=== PATIENT | female | born 1950 | race Caucasian/White ===

== ENCOUNTER 2018-10-19 08:45 | Day surgery (SDC) | payer BC ==
[~2018-10-19 08:45] MED LIST: Lactated Ringers 1,000 ML IV SCH; Lidocaine 1%/Sod Bicarbonate in NS 8.4% 1 ML Syringe IDERM PRN; Sodium Chloride 0.9% 10 ML Syringe FLUSH PRN
--- NOTE | 2018-10-19 09:18 | PCM.PREANE ---
Preanesthetic Assessment - Anesthesia/Transfusion/Family Hx Anesthesia History: Prior Anesthesia Without Reaction Family History of Anesthesia Reaction: No Transfusion History: No Prior Transfusion(s) Intubation History: Unknown - Review of Systems General: No Symptoms Pulmonary: No Symptoms Cardiovascular: No Symptoms (History of HTN, ICD 2016, , cardiac stents 2014, 2017: plavix last dose 10/13/18/history of [place] 2017/CHF), Edema (on lasix for symptoms of CHF/none present today) Gastrointestinal: No Symptoms Neurological: Headache Other: Reports: Easy Bleeding, Easy Bruising, Diabetes (AM blood sugar:61@ 0922) , Depression, Anxiety - Physical Assessment NPO Status Date: 10/18/18 NPO Status Time: 22:00 Pulse: 54 O2 Sat by Pulse Oximetry: 97 Respiratory Rate: 16 Blood Pressure: 117/60 Temperature: 36.9 C Height: 1.52 m Weight: 70.307 kg ASA Class: 3 Mental Status: Alert & Oriented x3 Airway Class: Mallampati = 2 Dentition: Reports: Normal Dentition, Caries Thyro-Mental Finger Breadths: 3 Mouth Opening Finger Breadths: 3 ROM/Head Extension: Full Lungs: Clear to Auscultation, Normal Respiratory Effort Cardiovascular: Regular Rate, Regular Rhythm, No Murmurs - Lab Values: All labs reviewed and noted and within acceptable ranges to proceed with scheduled procedure. - Imaging/EKG Impressions: EKG: SR rate= 55, prolonged CHLOÉ, right BBB Echocardiogram 2017: EF: 45-50%, Grade II, dilated filling dysfunction, RV elevated systolic pressure,mild to moderate aortic valve regurgitation - Allergies Allergies/Adverse Reactions: Allergies Allergy/AdvReac Type Severity Reaction Status Date / Time azithromycin Allergy Hives Verified 10/18/18 14:14 duloxetine Allergy Diarrhea Verified 10/18/18 14:14 lisinopril Allergy Cough Verified 10/18/18 14:14 losartan Allergy Cannot Verified 10/18/18 14:14 Remember naproxen sodium [From Aleve] Allergy Hives Verified 10/18/18 14:14 polymyxin B Allergy Swollen Verified 10/18/18 14:14 Eyes enalapril AdvReac Nausea Verified 10/18/18 14:14 ezetimibe [From Zetia] AdvReac Nausea Verified 10/18/18 14:14 irbesartan [From Avapro] AdvReac Nausea Verified 10/18/18 14:14 pravastatin sodium AdvReac Nausea Verified 10/18/18 14:14 [From Pravachol] - Anesthesia Plan Beta Rosa Maria: Metoprolol Med Last Dose Date: 10/19/18 Med Last Dose Time: 07:30 - Acknowledgements Anesthesia Type Planned: MAC Pt an Appropriate Candidate for the Planned Anesthesia: Yes Alternatives and Risks of Anesthesia Discussed w Pt/Guardian: Yes Pt/Guardian Understands and Agrees with Anesthesia Plan: Yes PreAnesthesia Questionnaire HEENT History: Reports: Cataract, Impaired Vision Other HEENT History: Wears glasses Cardiovascular History: Reports: High Cholesterol, Hypertension, Stents Other Cardiovascular History: Open heart when infact Respiratory History: Reports: Bronchitis, Recurrent 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: 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 History: Reports: Fracture Psychiatric History: Reports: Anxiety Endocrine/Metabolic History: Reports: Diabetes, Type II - Past Surgical History HEENT Surgical History: Reports: Adenoidectomy, Cataract Surgery, Tonsillectomy GI Surgical History: Reports: Appendectomy, Cholecystectomy Female Surgical History: Reports: Section - HOME MEDS Home Medications: Home Meds Aspirin [[place] Aspirin] 81 mg PO DAILY 10/09/14 [History] Clopidogrel [Plavix] 75 mg PO DAILY 10/09/14 [History] Furosemide [Lasix] 20 mg PO DAILY 10/09/14 [History] Insulin Aspart [NovoLOG] 1 dose SQ TID PRN 10/09/14 [History] Insulin Glargine,Hum.Rec.Anlog [Lantus Solostar] 28 unit SQ BID 10/09/14 [ History] Mometasone Furoate [Elocon] 0.1 gm TOP DAILY PRN 10/09/14 [History] Sertraline [Zoloft] 100 mg PO DAILY 10/09/14 [History] Valsartan 40 mg PO DAILY 10/09/14 [History] metFORMIN [Glucophage] 1,000 mg PO BID 10/09/14 [History] Clobetasol Propionate [Temovate Cream] 1 dose TOP BID 10/18/18 [History] Multivitamin [Daily August] 1 tab PO DAILY 10/18/18 [History] Rosuvastatin Calcium 10 mg PO DAILY 10/18/18 [History] amLODIPine Besylate [Amlodipine Besylate] 5 mg PO DAILY 10/18/18 [History] - CURRENT (IN HOUSE) MEDS Current Meds: Current Medications Lactated Ringer's (Ringers, Lactated) 1,000 mls @ 125 mls/hr IV ASDIRECTED TUAN Stop: 10/19/18 23:00 Lidocaine/Sodium Bicarbonate (Buffered Lidocaine 1% In Ns 8.4%) 0.25 ml IDERM ONETIME PRN PRN Reason: Prior to IV Start Stop: 10/19/18 18:00 Sodium Chloride (Saline Flush) 10 ml FLUSH ASDIRECTED PRN PRN Reason: Keep Vein Open Stop: 10/19/18 18:00
[2018-10-19] MEDS ORDERED: Propofol 200 MG/20 ML SDV ONE ×2 (09:23→10:55)
[2018-10-19] MEDS ORDERED: Lidocaine 1% 2 ML ONE ×2 (09:24)
--- NOTE | 2018-10-19 11:24 | PCM48HPAN ---
Post Anesthesia Note - EVALUATION WITHIN 48HRS OF ANESTHETIC Vital Signs in Normal Range: Yes Patient Participated in Evaluation: Yes Respiratory Function Stable: Yes Airway Patent: Yes Cardiovascular Function Stable: Yes Hydration Status Stable: Yes Pain Control Satisfactory: Yes Nausea and Vomiting Control Satisfactory: Yes Mental Status Recovered: Yes Pulse Rate: 57 SaO2: 100 Resp Rate: 14 Temperature: 36.9 C Blood Pressure: 103/46
--- NOTE | 2018-10-19 11:46 | PCM.OPNOTE ---
- General Post-Op/Procedure Note Date of Surgery/Procedure: 10/19/18 Operative Procedure(s): Colonoscopy Findings: Polyp in the transverse colon Pre Op Diagnosis: Screening colonoscopy for colorectal cancer Post-Op Diagnosis: Same Anesthesia Technique: MAC Primary Surgeon: Ina Lawrence Anesthesia Provider: Anel Navarro Pathology: Transverse colon polyp Fluid Replacement, Intraop: 800 Output, Urine Amount: 0 EBL in mLs: 0 Complications: None apparent Condition: Good
--- NOTE | 2018-10-19 11:49 | PCM.PRNOTE ---
- Free Text/Narrative Note: Operative Report Date of Surgery/Procedure: October 19, 2018 Operative Procedure: Colonoscopy to cecum with polypectomy Pre Op Diagnosis: colorectal cancer screening Post-Op Diagnosis: . Same Surgeon: Ina Lawrence MD Anesthesia Technique: MAC Anesthesia Provider: Anel Navarro CRNA IV Fluid Replacement, Intraop: 800cc Output, Urine Amount: 0cc EBL : 0cc Findings: Sessile polyp in the transverse colon Specimens: Transverse colon polyp Indication: The patient is a 67 year-old lady who presented to the outpatient clinic requesting colorectal cancer screening. The patient has findings of a ventral hernia, but has never undergone colorectal cancer screening. We advised completion of colonoscopy prior to ventral hernia repair. The patient was agreeable. We discussed the procedure of a screening colonoscopy including the polypectomy and biopsy. Risks of bleeding and perforation were discussed, the patient understood and wished to proceed. Written and consent was obtained Description of the procedure: The patient was brought to the endoscopy suite and placed in the left lateral decubitus position. Appropriate monitors were applied. The patient was given MAC anesthesia. An anorectal examination was performed, revealing no significant abnormalities. The scope was placed into the rectum and advanced to cecum with some difficulty requiring annual abdominal pressure. The patient s cecum was entered, and the ileocecal valve and appendiceal orifice were identified and normal. At this point, the scope was withdrawn, paying careful attention to the mucosa. The patient had good bowel prep, allowing for visualization of 85-90% of the mucosa. A 4 mm sessile polyp was noted in the transverse colon, and was removed using jumbo cold biopsy forceps. In the rectum , the scope was retroflexed and no abnormalities were noted, except for some hemorrhoidal tissue. The scope was placed back in the lumen and the excess air was aspirated. The patient tolerated the procedure well. Complications: none apparent Condition: Good, transported to PACU in stable condition Ina Lawrence MD General Surgery
[2018-10-19 12:29] VITALS: BP 136/53
== END 2018-10-19 12:20 | disposition home or self-care (01) ==
LOC: JD.SDS 08:45
PROVIDERS: ATTEND Surgery
DX: Z12.11 Encounter for screening for malignant neoplasm of colon (principal); D12.3 Benign neoplasm of transverse colon; K43.9 Ventral hernia without obstruction or gangrene; K64.9 Unspecified hemorrhoids; I25.10 Atherosclerotic heart disease of native coronary artery without angina pectoris; I11.0 Hypertensive heart disease with heart failure; I50.9 Heart failure, unspecified; I25.2 Old myocardial infarction; E11.9 Type 2 diabetes mellitus without complications; E78.00 Pure hypercholesterolemia, unspecified; F32.9 Major depressive disorder, single episode, unspecified; Z88.1 Allergy status to other antibiotic agents; Z88.6 Allergy status to analgesic agent; Z88.8 Allergy status to other drugs, medicaments and biological substances; Z95.5 Presence of coronary angioplasty implant and graft; Z95.810 Presence of automatic (implantable) cardiac defibrillator; Z79.02 Long term (current) use of antithrombotics/antiplatelets; Z79.82 Long term (current) use of aspirin; Z79.4 Long term (current) use of insulin; Z79.899 Other long term (current) drug therapy
CPT/HCPCS: 45380; 82962; 93005; J2001; J2704; J7120; 00812

== ENCOUNTER 2018-11-23 06:07 | Day surgery (SDC) | payer BC ==
[2018-11-23] MEDS ORDERED: Lidocaine 1% with EPINEPHrine 1:100,000 20 ML MDV ONE (07:08)
[2018-11-23] MEDS ORDERED: Bupivacaine 0.5%/EPINEPHrine 1:200,000 50 ML MDV ONE (07:08)
[2018-11-23] MEDS ORDERED: Propofol 200 MG/20 ML SDV ONE (07:21)
[2018-11-23] MEDS ORDERED: fentaNYL 100 MCG/2 ML SDV ONE ×2 (07:22→08:36)
[2018-11-23] MEDS ORDERED: Midazolam 1 MG/ML 2 ML SDV ONE (07:23)
[2018-11-23] MEDS ORDERED: Rocuronium 50 MG/5 ML Vial ONE (07:23)
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
[2018-11-23] MEDS ORDERED: ceFAZolin 1 GM Vial ONE ×2 (07:43)
--- NOTE | 2018-11-23 08:22 | CR ---
Chest: Portable view of the chest was obtained. Comparison: Prior chest x-ray of 10/13/16. Heart is mildly enlarged. Tortuous thoracic aorta is seen. AICD is noted. Lungs are clear with no acute parenchymal change. Bony structures are grossly intact. Scattered old healed rib fractures are noted. Impression: 1. Cardiomegaly with AICD. 2. Other incidental findings. Nothing acute is appreciated. Diagnostic code #2
[2018-11-23] MEDS ORDERED: Dexamethasone 4 MG/ML 5 ML MDV ONE (08:37)
[2018-11-23] MEDS ORDERED: Labetalol 100 MG/20 ML MDV ONE (08:39)
[2018-11-23] MEDS ORDERED: Ondansetron 4 MG/2 ML SDV ONE (09:41)
[2018-11-23] MEDS ORDERED: Phenylephrine 1% 10 MG/ML SDV ONE (09:42)
--- NOTE | 2018-11-23 10:26 | PCM.OPNOTE ---
- General Post-Op/Procedure Note Date of Surgery/Procedure: 11/23/18 Operative Procedure(s): Laparoscopic ventral hernia repair with mesh Findings: Epigastric hernia measuring 4 x 5 cm containing epigastrium; multiple filmy adhesions to omentum throughout abdomen Pre Op Diagnosis: Ventral hernia, possible incisional hernia Post-Op Diagnosis: Epigastric hernia Anesthesia Technique: General ET Tube Primary Surgeon: Ina Lawrence Anesthesia Provider: Luis Angel Hart Pathology: None Fluid Replacement, Intraop: 1,300 Output, Urine Amount: 0 EBL in mLs: 10 Complications: None apparent Condition: Good
[2018-11-23] MEDS ORDERED: Ketorolac 30 MG/ML SDV IVPUSH PRN (10:30)
[2018-11-23] MEDS ORDERED: Albuterol/Ipratropium 3.0-0.5 MG/3 ML Neb Soln NEB SCH (10:30)
--- NOTE | 2018-11-23 10:31 | PCM.PRNOTE ---
- Free Text/Narrative Note: Operative Report Date of surgery: November 23, 2018 Preoperative diagnosis: Ventral hernia, possible incisional hernia Postoperative diagnosis: Epigastric hernia Surgeon: Dr. Ina Lawrence Anesthesia: General ET Radial Drill Press Operator: Luis Angel Hart CRNA Estimated blood loss: 10 mL IV fluids: 1300 mL Urine output: See anesthesia record Drains and lines: None Indication for the procedure: The patient is a 67-year-old lady who presented to my office with complaint of a ventral hernia. The patient reports having and open cholecystectomy in the past. She recently had weight loss and noted a bulge in her abdomen. I discussed a procedure of a laparoscopic ventral hernia repair with mesh with the patient. Risks of infection, bleeding and mesh complication was reviewed, and written consent was obtained Description of the procedure: The patient presented to the outpatient holding area on the day for procedure history and physical were verified and the consent was present and on the chart. . She was taken back to the operating room and placed in supine position on the operating table. SCD boots were placed and functional prior to the service procedure. The patient received preoperative antibiotics as per SCIP protocol. The patient had successful induction of general anesthesia and was intubated without difficulty. The patient's left arm was tucked and the pressure points were padded. The patient was prepped and draped in standard surgical fashion and a timeout was performed. The abdomen was draped with Ioban to begin. A 5 mm incision was then made in the left upper quadrant just under the subcostal margin. A 5 mm port was then inserted into the abdomen with the Visiport technique. The abdomen was insufflated to 15 mmHg. There was no evidence of any injury in the area where we had entered the abdomen. A TAP block was then performed using 0.5 % bupivacaine with epinephrine mixed with 1% lidocaine with epinephrine. We then proceeded to survey the area of hernia. A 5 mm port was inserted in the left lower quadrant. The LigaSure device was then used to take down the adhesions and to reduce the hernia sac. We completed the TAP block once the right side of the abdomen was no longer obscured. We then used a spinal needle to size the hernia. It measured proximally 4 x 5 cm in the epigastrium. In order to cover the defect, a 15 x 20 cm oval double- sided mesh was selected. Goodwin-Kael suture were affixed in all 4 quadrants of the mesh. The right sided 12 mm abdominal port was placed in the right lower quadrant. The mesh was then soaked in saline, rolled and placed through this port into the abdomen. The mesh was then unfurled within the abdomen and the fixation site was marked with the spinal needle. A small stab incision was made in the area where we had selected. An Endo Close suture passer was then passed into the abdomen and the tails of the Goodwin-Kael suture were brought to the abdominal wall and secured. We then proceeded to do the same with the four remaining sutures in all four quadrants of the mesh. A SecureStrap Ethicon tacker was then used to circumferentially tack the to the abdominal wall. The 12 mm port was then removed and the fascial defect closed with an 0 Vicryl. The abdomen was then desufflated and the ports were removed. The stay sutures were tied down to the abdominal wall and the subcutaneous tissue was released as necessary for good closure. The incision sites were then closed with 4-0 Monocryl suture. Dermabond surgical glue were used to cover the port sites and stab incisions. The patient tolerated the procedure well and was transported to the PACU in stable condition. All sponge and needle counts correct. The Nivees catheter was removed at the conclusion of the case Complications: None apparent. Disposition: Stable to PACU Ina Lawrence MD General Surgery
--- NOTE | 2018-11-23 10:34 | PCM.POSTAN ---
POST ANESTHESIA ASSESSMENT - MENTAL STATUS Mental Status: Alert - CARDIOVASCULAR CV Status: Pulse Rate WNL, Blood Pressure Stable - GASTROINTESTINAL GI Status: No Symptoms - POST OP HYDRATION Hydration Status: Adequate & Stable
--- NOTE | 2018-11-23 10:35 | PCM48HPAN ---
Post Anesthesia Note - EVALUATION WITHIN 48HRS OF ANESTHETIC Vital Signs in Normal Range: Yes Patient Participated in Evaluation: Yes Respiratory Function Stable: Yes Airway Patent: Yes Cardiovascular Function Stable: Yes Hydration Status Stable: Yes Pain Control Satisfactory: Yes Nausea and Vomiting Control Satisfactory: Yes Mental Status Recovered: Yes Resp Rate: 16
[2018-11-23] MEDS ORDERED: Acetaminophen/HYDROcodone 325-5 MG Tab PO PRN (11:12)
[2018-11-23 13:10] VITALS: BP 137/49
== END 2018-11-23 13:25 | disposition home or self-care (01) ==
LOC: JD.SDS 06:07
PROVIDERS: ATTEND Surgery
DX: K43.9 Ventral hernia without obstruction or gangrene (principal); S36.408A Unspecified injury of other part of small intestine, initial encounter; I11.0 Hypertensive heart disease with heart failure; I50.9 Heart failure, unspecified; I73.9 Peripheral vascular disease, unspecified; E11.9 Type 2 diabetes mellitus without complications; I25.10 Atherosclerotic heart disease of native coronary artery without angina pectoris; I25.2 Old myocardial infarction; E78.5 Hyperlipidemia, unspecified; E78.00 Pure hypercholesterolemia, unspecified; M50.30 Other cervical disc degeneration, unspecified cervical region; F32.9 Major depressive disorder, single episode, unspecified; F41.9 Anxiety disorder, unspecified; J40 Bronchitis, not specified as acute or chronic; E66.9 Obesity, unspecified; Z68.33 Body mass index [BMI] 33.0-33.9, adult; Z98.890 Other specified postprocedural states; Z88.6 Allergy status to analgesic agent; Z88.1 Allergy status to other antibiotic agents; Z91.048 Other nonmedicinal substance allergy status; Z79.82 Long term (current) use of aspirin; Z79.899 Other long term (current) drug therapy; Z79.02 Long term (current) use of antithrombotics/antiplatelets; Z79.4 Long term (current) use of insulin; Z95.810 Presence of automatic (implantable) cardiac defibrillator; Z95.5 Presence of coronary angioplasty implant and graft; Z95.0 Presence of cardiac pacemaker
CPT/HCPCS: 36415; 49652; 71045; 80053; 82962; 85025; 94640; A9270; J0690; J1100; J2250; J2370; J2405; J2704; J3010; J3490; J7120; J7620-GY

== ENCOUNTER 2021-02-12 20:58 | Emergency (ER) | payer MEDICARE, OTHER ==
[2021-02-12] MEDS ORDERED: HYDROmorphone 0.5 MG/0.5 ML Syringe IVPUSH ONE ×2 (21:16→23:04)
[2021-02-12] MEDS ORDERED: Ondansetron 4 MG/2 ML SDV IVPUSH ONE (21:18)
--- NOTE | 2021-02-12 21:25 | EDM.PDOC ---
ED HPI GENERAL MEDICAL PROBLEM - General Stated Complaint: [facility] Time Seen by Provider: 02/12/21 21:00 Source of Information: Reports: Patient, EMS History Limitations: Reports: No Limitations - History of Present Illness INITIAL COMMENTS - FREE TEXT/NARRATIVE: A trauma alert was called for this patient. Ms. Vidal is a very pleasant 70-year-old woman who is now brought to the ED by EMS after she states that she lost her balance and fell in her bathroom around 19:30 tonight, striking her right ribs on the edge of the tub. She states that she has considerable pain to the area with movement, but denies having trouble breathing. The patient is on Coumadin for paroxysmal atrial fibrillation. EMS found the patient's blood glucose to be 320. No medications were given by EMS. Here in the ED, the patient is found to be hemodynamically stable, afebrile, saturating 96% on room air. She appears to be uncomfortable whenever she moves. Prior to oscar's fall, the patient denies having a recent fever, chills, sore throat, ear pain, nasal or sinus congestion, cough, dyspnea, chest pain, palpitations, nausea, vomiting, constipation, diarrhea, abdominal pain, urinary symptoms, recent weight gain or weight loss, recent bloody bowel movements or black bowel movements, recent joint aches, headaches, or rashes. The patient's PCP is CHERRI Johnson. Her Ocean Biologist is Dr. Connor Garcia. Her Cook Specialty is Dr. Luís Saunders. She has received 2 COVID vaccinations. Right Mid-Anterior Trunk Pain Score (Numeric/FACES): 10 - Related Data Allergies Allergy/AdvReac Type Severity Reaction Status Date / Time azithromycin Allergy Hives Verified 02/12/21 22:01 duloxetine Allergy Diarrhea Verified 02/12/21 22:01 lisinopril Allergy Cough Verified 02/12/21 22:01 losartan Allergy Nausea Verified 02/12/21 22:01 naproxen sodium [From Aleve] Allergy Hives Verified 02/12/21 22:01 polymyxin B Allergy Swollen Verified 02/12/21 22:01 Eyes enalapril AdvReac Nausea Verified 02/12/21 22:01 ezetimibe [From Zetia] AdvReac Nausea Verified 02/12/21 22:01 irbesartan [From Avapro] AdvReac Nausea Verified 02/12/21 22:01 pravastatin sodium AdvReac Nausea Verified 02/12/21 22:01 [From Pravachol] Home Meds: Home Meds Aspirin [Broadway Aspirin] 81 mg PO DAILY 10/09/14 [History] Insulin Aspart [NovoLOG] 1 dose SQ TID 10/09/14 [History] Insulin Glargine,Hum.Rec.Anlog [Lantus Solostar] 30 unit SQ BID 10/09/14 [History] Mometasone Furoate [Elocon 0.1% Crm] 0.1 gm TOP DAILY PRN 10/09/14 [History] Sertraline [Zoloft] 100 mg PO BEDTIME 10/09/14 [History] metFORMIN [Glucophage] 1,000 mg PO BID 10/09/14 [History] Multivitamin [Daily August] 1 tab PO DAILY 10/18/18 [History] Rosuvastatin Calcium 20 mg PO DAILY 10/18/18 [History] amLODIPine Besylate [Amlodipine Besylate] 5 mg PO DAILY 10/18/18 [History] Acetaminophen [Tylenol Extra Strength] 500 mg PO Q4HR PRN 11/22/18 [History] Furosemide 80 mg PO MOWEFR 11/22/18 [History] Metoprolol Tartrate 25 mg PO BID 11/22/18 [History] Valsartan 80 mg PO DAILY 11/22/18 [History] Cholecalciferol (Vitamin D3) [Vitamin D3] 1,000 unit PO DAILY 02/13/21 [History] Clobetasol/Emollient [Temovate E 0.05% Crm] 1 appful TOP BID 02/13/21 [History] Furosemide [Lasix] 40 mg PO SUTUTHSA 02/13/21 [History] Warfarin [Coumadin] 2.5 mg PO TUSA 02/13/21 [History] Warfarin [Coumadin] 5 mg PO SUMOWETHFR 02/13/21 [History] Past Medical History HEENT History: Reports: Impaired Vision (wears glasses) Cardiovascular History: Reports: Afib (paroxysmal), CAD, Heart Failure, High Cholesterol, Hypertension, [place] (x 1) 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 History: Reports: Fracture (ribs) Psychiatric History: Reports: Anxiety, Depression Endocrine/Metabolic History: Reports: Diabetes, Type II, Obesity/BMI 30+ - Past Surgical History HEENT Surgical History: Reports: Adenoidectomy, Cataract Surgery (bilateral), Laser Surgery (bilateral), Tonsillectomy Cardiovascular Surgical History: Reports: AICD GI Surgical History: Reports: Appendectomy, Cholecystectomy (1975), Colonoscopy, Hernia, Abdominal Female Surgical History: Reports: Section (x 1), Tubal Ligation Social & Family History - Tobacco Use Tobacco Use Status *Q: Never Tobacco User - Caffeine Use Caffeine Use: Reports: Soda - Alcohol Use Alcohol Use History: Yes Date/Time of Last Drink Comment: Sober x 2005 - Recreational Drug Use Recreational Drug Use: No - Living Situation & Occupation Living situation: Reports: , with Family (Son) Occupation: Retired ED ROS GENERAL - Review of Systems Review Of Systems: Comprehensive ROS is negative, except as noted in HPI. ED EXAM, GENERAL - Physical Exam Exam: See Below Exam Limited By: No Limitations General Appearance: Alert, WD/WN, Mild Distress (appears uncomfortable when moves) Eye Exam: Bilateral Eye: EOMI, Normal Inspection (s/p cataract surgery) Ears: Normal External Exam, Hearing Grossly Normal Nose: Normal Inspection Throat/Mouth: Normal Inspection, Normal Lips, Normal Voice, No Airway Compromise Head: Atraumatic, Normocephalic Neck: Normal Inspection, Full Range of Motion Respiratory/Chest: No Respiratory Distress, Lungs Clear, Normal Breath Sounds, No Accessory Muscle Use, Other (No visible abnormality to the right ribs, such as swelling, erythema, ecchymosis, abrasion, however, the patient has exquisite tenderness to palpation. No crepitus palpated or rub heard.). No: Decreased Breath Sounds, Crackles, Rhonchi, Wheezing, Stridor, Pleural Rub, Prolonged Expiration Cardiovascular: Normal Peripheral Pulses, Regular Rate, Rhythm, No Edema, No Gallop, No JVD, No Murmur, No Rub Peripheral Pulses: 3+: Radial (L), Radial (R) GI/Abdominal: Normal Bowel Sounds, Soft, No Organomegaly, No Distention, No Abnormal Bruit, No Mass, Tender (Right upper quadrant only. Nontender elsewhere.) Back Exam: Normal Inspection, Full Range of Motion, NT Extremities: Normal Inspection, Normal Range of Motion, No Pedal Edema, Normal Capillary Refill Neurological: Alert, Oriented, Normal Cognition, No Motor/Sensory Deficits Psychiatric: Normal Affect Skin Exam: Warm, Dry, Intact, Normal Color, No Rash #1 Interpretation EKG Date: 02/12/21 Time: 22:50 Rhythm: NSR Rate (Beats/Min): 63 Poca: LAD-Left Poca Deviation (due to LAFB) P-Wave: Present (1st degree AVB) QRS: RBBB (LVH. Late transition.) ST-T: Depressed (Inferior leads, V4-V6) QT: Prolonged (QTc 485 ms) Comparison: Change From Previous EKG (ST depression ini inferior leads and V4-V6 new since 10/19/2018) Course - Vital Signs Last Recorded V/S: Last Vital Signs Temp 36.5 C 02/12/21 21:00 Pulse 65 02/13/21 06:43 Resp 18 02/13/21 06:43 BP 188/52 H 02/13/21 06:43 Pulse Ox 94 L 02/13/21 06:43 - Orders/Labs/Meds Orders: Active Orders 24 hr Category Date Time Status Chest Abdomen Pelvis w Cont [CT] Stat Exams 02/12/21 21:14 Taken Sodium Chloride 0.9% [Normal Saline] 1,000 ml Med 02/12/21 21:30 Active IV ASDIRECTED Medication Orders Sodium Chloride (Normal Saline) 1,000 mls @ 100 mls/hr IV ASDIRECTED TUAN Last Admin: 02/12/21 21:45 Dose: 100 mls/hr Documented by: THOMAS Labs: Laboratory Tests 02/12/21 02/12/21 02/12/21 Range/Units 21:30 21:30 21:30 WBC 12.64 H (3.98-10.04) K/mm3 RBC 4.24 (3.98-5.22) M/mm3 Hgb 11.5 (11.2-15.7) gm/dl Hct 35.8 (34.1-44.9) % MCV 84.4 (79.4-94.8) fl MCH 27.1 (25.6-32.2) pg MCHC 32.1 L (32.2-35.5) g/dl RDW Std Deviation 40.1 (36.4-46.3) fL Plt Count 213 (182-369) K/mm3 MPV 10.5 (9.4-12.3) fl Neutrophils % (Manual) 81 H (40-60) % Band Neutrophils % 0 (0-10) % Lymphocytes % (Manual) 11 L (20-40) % Atypical Lymphs % 0 % Monocytes % (Manual) 7 (2-10) % Eosinophils % (Manual) 1 (0.7-5.8) % Basophils % (Manual) 0 L (0.1-1.2) Platelet Estimate Adequate RBC Morph Comment Normal PT 28.2 H (9.7-12.0) SECONDS INR 2.69 APTT 40.8 H (21.7-31.4) SECONDS Sodium 133 L (136-145) mEq/L Potassium 4.8 (3.5-5.1) mEq/L Chloride 98 (98-107) mEq/L Carbon Dioxide 31 (21-32) mEq/L Anion Gap 8.8 (5-15) BUN 29 H (7-18) mg/dL Creatinine 1.6 H (0.55-1.02) mg/dL Est Cr Clr Drug Dosing 24.17 mL/min Estimated GFR (MDRD) 32 (>60) mL/min BUN/Creatinine Ratio 18.1 H (14-18) Glucose 333 H (70-99) mg/dL POC Glucose (70-99) mg/dL Calcium 8.9 (8.5-10.1) mg/dL Magnesium 1.9 (1.8-2.4) mg/dL Total Bilirubin 0.4 (0.2-1.0) mg/dL AST 29 (15-37) U/L ALT 37 (14-59) U/L Alkaline Phosphatase 130 H (46-116) U/L Troponin I 0.216 H* (0.00-0.056) ng/mL Total Protein 8.1 (6.4-8.2) g/dl Albumin 4.1 (3.4-5.0) g/dl Globulin 4.0 gm/dL Albumin/Globulin Ratio 1.0 (1-2) SARS-CoV-2 RNA (LEXIE) (NEGATIVE) 02/12/21 02/12/21 02/13/21 Range/Units 22:30 23:45 02:35 WBC (3.98-10.04) K/mm3 RBC (3.98-5.22) M/mm3 Hgb (11.2-15.7) gm/dl Hct (34.1-44.9) % MCV (79.4-94.8) fl MCH (25.6-32.2) pg MCHC (32.2-35.5) g/dl RDW Std Deviation (36.4-46.3) fL Plt Count (182-369) K/mm3 MPV (9.4-12.3) fl Neutrophils % (Manual) (40-60) % Band Neutrophils % (0-10) % Lymphocytes % (Manual) (20-40) % Atypical Lymphs % % Monocytes % (Manual) (2-10) % Eosinophils % (Manual) (0.7-5.8) % Basophils % (Manual) (0.1-1.2) Platelet Estimate RBC Morph Comment PT (9.7-12.0) SECONDS INR APTT (21.7-31.4) SECONDS Sodium (136-145) mEq/L Potassium (3.5-5.1) mEq/L Chloride (98-107) mEq/L Carbon Dioxide (21-32) mEq/L Anion Gap (5-15) BUN (7-18) mg/dL Creatinine (0.55-1.02) mg/dL Est Cr Clr Drug Dosing mL/min Estimated GFR (MDRD) (>60) mL/min BUN/Creatinine Ratio (14-18) Glucose (70-99) mg/dL POC Glucose 240 H (70-99) mg/dL Calcium (8.5-10.1) mg/dL Magnesium (1.8-2.4) mg/dL Total Bilirubin (0.2-1.0) mg/dL AST (15-37) U/L ALT (14-59) U/L Alkaline Phosphatase (46-116) U/L Troponin I 0.191 H* (0.00-0.056) ng/mL Total Protein (6.4-8.2) g/dl Albumin (3.4-5.0) g/dl Globulin gm/dL Albumin/Globulin Ratio (1-2) SARS-CoV-2 RNA (LEXIE) Negative (NEGATIVE) Meds: Medications Generic Name Dose Route Start Last Admin Trade Name Freq PRN Reason Stop Dose Admin Sodium Chloride 1,000 mls @ 100 mls/hr 02/12/21 21:30 02/12/21 21:45 Normal Saline IV 100 mls/hr ASDIRECTED TUAN Administration Discontinued Medications Generic Name Dose Route Start Last Admin Trade Name Moe PRAniyah Reason Stop Dose Admin Aspirin 324 mg 02/12/21 22:53 02/12/21 23:00 Aspirin 81 Mg Tab.Chew PO 02/12/21 22:54 324 mg ONETIME STA Administration Hydromorphone HCl 0.5 mg 02/12/21 21:16 02/12/21 21:46 Hydromorphone 0.5 Mg/0.5 Ml Syringe IVPUSH 02/12/21 21:17 0.5 mg ONETIME ONE Administration Hydromorphone HCl 0.5 mg 02/12/21 23:04 02/12/21 23:19 Hydromorphone 0.5 Mg/0.5 Ml Syringe IVPUSH 02/12/21 23:05 0.5 mg ONETIME ONE Administration Hydromorphone HCl 0.5 mg 02/13/21 01:50 02/13/21 02:15 Hydromorphone 0.5 Mg/0.5 Ml Syringe IVPUSH 02/13/21 01:51 0.5 mg ONETIME ONE Administration Hydromorphone HCl 0.5 mg 02/13/21 06:44 02/13/21 06:56 Hydromorphone 0.5 Mg/0.5 Ml Syringe IVPUSH 02/13/21 06:45 0.5 mg ONETIME ONE Administration Iopamidol 100 ml 02/12/21 21:32 02/12/21 22:00 Iopamidol 612 Mg/Ml 100 Ml Bottle IVPUSH 02/12/21 21:33 100 ml ONETIME ONE Administration Ondansetron HCl 4 mg 02/12/21 21:18 02/12/21 21:46 Ondansetron 4 Mg/2 Ml Sdv IVPUSH 02/12/21 21:19 4 mg ONETIME ONE Administration Sodium Chloride 10 ml 02/12/21 21:32 02/12/21 22:00 Sodium Chloride 0.9% 10 Ml Sdv FLUSH 02/12/21 21:33 10 ml ONETIME ONE Administration - Re-Assessments/Exams Free Text/Narrative Re-Assessment/Exam: 02/12/21 21:17 Although the patient has no visible abnormality to her right ribs, she has considerable tenderness to that area, and, also concerning, tenderness to the right upper quadrant of her abdomen. No distinct rub is heard. I have ordered a work-up and includes several blood tests, a CT of the abdomen and pelvis with IV contrast, and, in the event that the patient requires admission or transfer, a swab for the SARS-CoV-2 virus. In the meantime, the patient will be treated w ith some IV Dilaudid, IV Zofran, and gentle IV fluid. 02/12/21 22:34 CT of the chest with IV contrast is read by [facility] as: 1. Multiple right-sided rib fractures appear to be acute. There multiple additional age indeterminate, likely chronic, rib fractures. [sic] 2. Trace right pneumothorax. Several minute foci of pleural gas are identified anteriorly. One or 2 posterior foci of gas may be subpleural in location. The patient's CBC is remarkable for mild leukocytosis of 12.64, but with 0% bandemia, and the remainder of her CBC being unremarkable. Her CMP is remarkable for slight hyponatremia of 133, a BUN/Cr elevated at 29/1.6, and hyperglycemia of 333, with remainder of her CMP being unremarkable. Her magnesium level is within normal limits at 1.9. Her troponin is elevated at 0.216. Based on the above, I will order an ECG and 324 mg aspirin. 02/12/21 22:42 CT of the abdomen and pelvis with IV contrast is read by [facility] as: 1. Mild extrahepatic biliary ductal dilatation. This mild extrahepatic biliary ductal dilatation may be related to postcholecystectomy state. 2. No sign of acute trauma in the abdomen or pelvis. 02/12/21 23:09 The patient's ECG demonstrates a normal sinus rhythm with first-degree AV block, ST depressions in the inferior leads and V4V6, which are new since 10/19/2018, left axis deviation most likely due to a left anterior fascicular block, with right bundle branch block and LVH, with late transition, and a prolonged QTc. 02/12/21 23:37 [facility] contacted at 23:17. Case discussed with Cynthia at [facility] at 23:21. Case then discussed with Dr. Lawton, Ocean Biologist at [facility], at 23:30. He agreed that the troponin is too high to be explained by the degree of the patient's renal insufficiency. He recommended that we repeat a troponin at this time. 02/12/21 23:46 The patient's a swab for the SARS-CoV-2 virus is negative. 02/13/21 00:34 The patient's repeat troponin went down to 0.191. 02/13/21 00:58 [facility] called back at 00:44. Case discussed with Cynthia at [facility] at 00:47. Case then discussed with Dr. Lawton, Ocean Biologist at [facility], at 00:54. He agreed that the patient needed to be admitted in order to undergo an echocardiogram and follow troponins, however, [facility] does not have any beds available at this time (neither does [facility] checked a short while ago). Cynthia expects that there will be beds available around 09:00 to 10:00 CDT tomorrow morning. The plan is to keep the patient here in the ED overnight, then [facility] will call us in the morning when a bed becomes available, and the patient can be directly admitted. 02/13/21 01:50 The above plan was discussed with the patient and her son, now at the bedside. She is agreeable. She requested some additional pain medication. 02/13/21 03:36 Case discussed with Cynthia at [facility] at 03:30. Case then discussed with Dr. Muñoz, Hospitalist at [facility], and Dr. Nava, ED Physician at [facility], at 03:31. Because the patient is a trauma patient, she is to arrive at their ED at 10:00 CDT this morning, Dr. Nava accepting. After she is evaluated in the ED, she will be admitted to Dr. Muñoz. CT images pushed to [facility] at 03:36. Departure - Departure Time of Disposition: 03:39 Disposition: DC/Tfer to Acute Hospital 02 Condition: Good Clinical Impression: Fall at home, Multiple fractures of ribs of right side, Elevated troponin - Discharge Information *PRESCRIPTION DRUG MONITORING PROGRAM REVIEWED*: Not Applicable *COPY OF PRESCRIPTION DRUG MONITORING REPORT IN PATIENT GUILHERME: Not Applicable Referrals: Shayy Amaro PA-C [Primary Care Provider] - Luís Saunders MD [Ordering Only Provider] - Connor Garcia MD [Ordering Only Provider] - Sepsis Event Note (ED) - Focused Exam Vital Signs: Vital Signs Temp Pulse Resp BP Pulse Ox 02/13/21 06:43 65 18 188/52 H 94 L 02/12/21 21:00 36.5 C 89 18 137/86 96 - My Orders Last 24 Hours: My Active Orders 02/12/21 21:14 Chest Abdomen Pelvis w Cont [CT] Stat 02/12/21 21:30 Sodium Chloride 0.9% [Normal Saline] 1,000 ml IV ASDIRECTED - Assessment/Plan Last 24 Hours: My Active Orders 02/12/21 21:14 Chest Abdomen Pelvis w Cont [CT] Stat 02/12/21 21:30 Sodium Chloride 0.9% [Normal Saline] 1,000 ml IV ASDIRECTED
[2021-02-12] MEDS ORDERED: Sodium Chloride 0.9% 1,000 ML IV SCH (21:30)
[2021-02-12] MEDS ORDERED: Iopamidol 612 MG/ML 100 ML Bottle IVPUSH ONE (21:32)
[2021-02-12] MEDS ORDERED: Sodium Chloride 0.9% 10 ML SDV FLUSH ONE (21:32)
[2021-02-12] MEDS ORDERED: Aspirin 81 MG Tab.Chew PO STA (22:53)
[2021-02-13] MEDS ORDERED: HYDROmorphone 0.5 MG/0.5 ML Syringe IVPUSH ONE ×2 (01:50→06:44)
[2021-02-13 06:44] VITALS: BP 188/52; PULSE 65
--- NOTE | 2021-02-13 12:12 | CT ---
CT chest Technique: Multiple axial sections through the chest were obtained. Intravenous contrast was utilized. Reconstructed coronal and sagittal images were obtained. Comparison: No prior chest CT is available, prior chest x-ray 11/23/18 is available. Findings: Thoracic aorta shows atherosclerotic change with ectatic ascending aorta. Coronary artery calcification is noted. Mediastinum and hilar regions show no adenopathy. AICD is noted causing some artifact. Heart is enlarged. No pericardial thickening is seen. Air is noted within the posterior right chest wall. There is some pleural thickening seen within the right lower chest. Pleural thickening contains a small amount of air presumably due to minimal pneumothorax. Old rib fractures are noted within right and left chest. Acute displaced fractures are seen within the posterolateral right 9th and 10th ribs which is in the area of pleural thickening/minimal pneumothorax and chest wall air. Additional nondisplaced rib fractures are seen within the right 7th and 8th ribs. Lungs are clear with no acute parenchymal change. Scattered degenerative changes are noted within the thoracic spine. Impression: 1. At least 2 displaced acute rib fractures on the right side with associated pleural thickening and subcutaneous air in these regions. Minimal pneumothorax is seen within the area of pleural thickening. Two nondisplaced rib fractures are seen on the right side within the 7th and 8th ribs. 2. Other chronic appearing rib fractures are seen on both sides. 3. Other nonacute findings as noted above. Diagnostic code #3 I agree with preliminary report from [facility], finalized on 02/12/21, 11:29 PM CDT, code 1 CT abdomen and pelvis Technique: Multiple axial sections were obtained from above the dome of the diaphragm inferiorly through the pubic symphysis. Intravenous contrast was utilized. No oral contrast has been given. Delayed images were also obtained through the abdomen and pelvis. Reconstructed coronal and sagittal images were obtained. Comparison: Prior CT abdomen and pelvis study of 09/19/18. Findings: Liver contains no focal parenchymal abnormality. Spleen size is normal. Adrenal glands show no nodule. Prior cholecystectomy is noted. Extrahepatic biliary duct is minimally prominent which is felt to be incidental. Kidneys show symmetric contrast enhancement without hydronephrosis or mass. Abdominal aorta shows atherosclerotic change which continues into the iliac vessels without aneurysm. Pancreas is within normal limits. No retroperitoneal adenopathy or mesenteric abnormalities are seen. Surgical material is seen within the pelvis. Delayed images show contrast within the ureters as well as within the bladder with no contrast extravasation. No free fluid or inflammatory change is seen within the abdomen or pelvis. Bone window settings were reviewed which show spondylolytic defects at L5-S1 with disc space narrowing and mild spondylolisthesis measuring about 8 mm. No definite acute osseous abnormality is appreciated. Impression: 1. Chronic appearing findings as noted above. 2. Nothing acute is appreciated on CT study of the abdomen and pelvis. Diagnostic code #2 I agree with preliminary report from [facility], finalized on 02/12/21, 11:34 PM CDT, code 1
== END 2021-02-13 07:55 ==
LOC: JD.ED 20:58
DX: S22.41XA Multiple fractures of ribs, right side, initial encounter for closed fracture (principal); R79.89 Other specified abnormal findings of blood chemistry; I48.91 Unspecified atrial fibrillation; I25.10 Atherosclerotic heart disease of native coronary artery without angina pectoris; I11.0 Hypertensive heart disease with heart failure; I50.9 Heart failure, unspecified; E78.00 Pure hypercholesterolemia, unspecified; E11.9 Type 2 diabetes mellitus without complications; I25.2 Old myocardial infarction; E66.9 Obesity, unspecified; Z88.1 Allergy status to other antibiotic agents; Z88.8 Allergy status to other drugs, medicaments and biological substances; Z88.6 Allergy status to analgesic agent; Z79.82 Long term (current) use of aspirin; Z79.4 Long term (current) use of insulin; Z68.27 Body mass index [BMI] 27.0-27.9, adult; Z20.822 Contact with and (suspected) exposure to COVID-19; W19.XXXA Unspecified fall, initial encounter; Y92.009 Unspecified place in unspecified non-institutional (private) residence as the place of occurrence of the external cause
CPT/HCPCS: 36415; 71260; 74177; 80053; 82947; 83735; 84484; 85007; 85027; 85610; 85730; 93005; 96374; 96375; 96376; 99285; A9270; J1170; J2405; J7030; Q9967; U0002; 93010

== ENCOUNTER 2021-05-17 15:24 | Inpatient (IN) | payer MEDICARE ==
[2021-05-17] MEDS ORDERED: Sodium Chloride 0.9% 10 ML Syringe FLUSH PRN ×2 (15:47→17:43)
[2021-05-17] MEDS ORDERED: cefTRIAXone 2 GM in Sodium Chloride 0.9% 100 ML IV ONE (15:53)
[2021-05-17] MEDS ORDERED: Sodium Chloride 0.9% 1,000 ML IV STA (15:54)
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
[2021-05-17] MEDS ORDERED: Vancomycin 1 GM, Vancomycin 250 MG in Sodium Chloride 0.9% 250 ML IV ONE (16:30)
--- NOTE | 2021-05-17 16:30 | CR ---
Chest: PA and lateral views of the chest were obtained. Comparison: Prior chest x-ray of 11/23/18. Heart is enlarged. AICD is noted. There is pleural thickening seen on the lateral right chest which is felt to be residual from healing rib fractures that are seen along the right chest. Lungs otherwise are clear. Slight scoliosis is noted within the spine. Impression: 1. Pleural thickening along the right lateral chest which is felt to be residual from healing rib fractures that are seen along the right chest. 2. Cardiomegaly and AICD. 3. Nothing acute is seen on two-view chest x-ray. Diagnostic code #3
[2021-05-17] MEDS ORDERED: Morphine 2 MG/ML SYRINGE IVPUSH PRN (17:43)
[2021-05-17] MEDS ORDERED: Ondansetron 4 MG/2 ML SDV IV PRN (17:43)
[2021-05-17] MEDS ORDERED: Docusate Sodium 100 MG Cap PO PRN (17:43)
[2021-05-17] MEDS ORDERED: ceFAZolin 2 GM in Sodium Chloride 0.9% 50 ML IV SCH (18:00)
[2021-05-17] MEDS ORDERED: Warfarin 5 MG Tab PO SCH (18:00)
[2021-05-17] MEDS ORDERED: Furosemide 40 MG Tab PO SCH (18:00)
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
[2021-05-17] MEDS: Potassium Chloride 10 MEQ in Premix Bag 1 BAG IV SCH ×4 (19:50→22:56)
[2021-05-17] MEDS: Acetaminophen 325 MG Tab PO PRN (20:00)
[2021-05-17] MEDS ORDERED: Non-Formulary Medication 1 Each (Sertraline 100 MG Tablet) PO SCH (21:00)
[2021-05-17] MEDS ORDERED: Metoprolol Tartrate 50 MG Tab PO SCH (21:00)
[2021-05-17] MEDS ORDERED: Insulin Glargine,Human Rec. Analog 100 Units/ML 3 ML Pen SUBCUT SCH (21:00)
[2021-05-17] MEDS ORDERED: Warfarin 5 MG Tab PO ONE (22:30)
[2021-05-17] MEDS: Sertraline 50 MG Tab PO SCH (22:41)
[2021-05-17] MEDS: Insulin Lispro 100 Unit/ML 3 ML KwikPen SUBCUT SCH (22:41)
[2021-05-17] MEDS: Insulin Glargine,Hum.Rec.Anlog 100 UNIT/ML 3 ML Pen SUBCUT SCH (22:42)
[2021-05-18] MEDS: Acetaminophen 325 MG Tab PO PRN ×5 (00:34→23:02)
[2021-05-18] MEDS: Potassium Chloride 10 MEQ in Premix Bag 1 BAG IV SCH ×3 (00:37→18:58)
[2021-05-18] MEDS: ceFAZolin 2 GM in Premix Bag 1 BAG IV SCH ×2 (03:15→15:59)
[2021-05-18] MEDS: Aspirin 81 MG Tab.EC PO SCH (08:32)
[2021-05-18] MEDS: Rosuvastatin 10 MG Tab PO SCH (08:32)
[2021-05-18] MEDS: Insulin Glargine,Hum.Rec.Anlog 100 UNIT/ML 3 ML Pen SUBCUT SCH ×2 (08:37→23:05)
[2021-05-18] MEDS: Insulin Lispro 100 Unit/ML 3 ML KwikPen SUBCUT SCH ×4 (08:39→23:04)
[2021-05-18] MEDS ORDERED: ROSUVASTATIN PO SCH (09:00)
[2021-05-18] MEDS ORDERED: VALSARTAN PO SCH ×2 (09:00)
[2021-05-18] MEDS ORDERED: Insulin Glargine,Human Rec. Analog 100 Units/ML 3 ML Pen SUBCUT SCH (09:00)
[2021-05-18] MEDS ORDERED: Aspirin 81 MG Tab.Chew PO SCH (09:00)
--- NOTE | 2021-05-18 09:06 | PCM.PN ---
- General Info Date of Service: 05/18/21 Admission Dx/Problem (Free Text): Admission Diagnosis/Problem Admission Diagnosis/Problem Cellulitis Subjective Update: Events overnight. No new nursing concerns. Patient seen and examined at bedside. Patient still complains of tenderness with the involved right lower extremity. No gross overall change in erythema. No new induration. No wounds, blisters or open skin breaks. No fever overnight. Awaiting lower extremity Doppler ultrasound to rule out DVT. - Patient Data Vitals - Most Recent: Last Vital Signs Temp 97.3 F 05/18/21 08:01 Pulse 56 L 05/18/21 08:01 Resp 15 05/18/21 08:01 BP 110/53 L 05/18/21 08:01 Pulse Ox 99 05/18/21 08:01 Weight - Most Recent: 142 lb 8 oz I&O - Last 24 Hours: Intake & Output 05/17/21 05/18/21 05/18/21 22:59 06:59 14:59 Intake Total 320 1801 Output Total 1300 Balance 320 501 Lab Results Last 24 Hours: Laboratory Results - last 24 hr 05/17/21 05/17/21 05/17/21 Range/Units 16:24 16:24 16:24 WBC 9.54 (3.98-10.04) K/mm3 RBC 3.74 L (3.98-5.22) M/mm3 Hgb 10.1 L (11.2-15.7) gm/dl Hct 32.5 L (34.1-44.9) % MCV 86.9 (79.4-94.8) fl MCH 27.0 (25.6-32.2) pg MCHC 31.1 L (32.2-35.5) g/dl RDW Std Deviation 45.1 (36.4-46.3) fL Plt Count 164 L (182-369) K/mm3 MPV 10.9 (9.4-12.3) fl Neut % (Auto) 86.4 H (34.0-71.1) % Lymph % (Auto) 6.1 L (19.3-51.7) % Amador % (Auto) 7.0 (4.7-12.5) % Eos % (Auto) 0.1 L (0.7-5.8) Baso % (Auto) 0.2 (0.1-1.2) % Neut # (Auto) 8.24 H (1.56-6.13) K/mm3 Lymph # (Auto) 0.58 L (1.18-3.74) K/mm3 Amador # (Auto) 0.67 H (0.24-0.36) K/mm3 Eos # (Auto) 0.01 L (0.04-0.36) K/mm3 Baso # (Auto) 0.02 (0.01-0.08) K/mm3 PT 14.4 H D (9.7-12.0) SECONDS INR 1.31 Sodium 135 L (136-145) mEq/L Potassium 3.1 L (3.5-5.1) mEq/L Chloride 96 L (98-107) mEq/L Carbon Dioxide 27 (21-32) mEq/L Anion Gap 15.1 H (5-15) BUN 25 H (7-18) mg/dL Creatinine 1.5 H (0.55-1.02) mg/dL Est Cr Clr Drug Dosing 25.78 mL/min Estimated GFR (MDRD) 35 (>60) mL/min BUN/Creatinine Ratio 16.7 (14-18) Glucose 135 H (70-99) mg/dL POC Glucose (70-99) mg/dL Calcium 8.3 L (8.5-10.1) mg/dL Total Bilirubin 0.8 (0.2-1.0) mg/dL AST 53 H (15-37) U/L ALT 55 (14-59) U/L Alkaline Phosphatase 113 (46-116) U/L C-Reactive Protein 11.2 H* (<1.0) mg/dL Total Protein 7.5 (6.4-8.2) g/dl Albumin 3.4 (3.4-5.0) g/dl Globulin 4.1 gm/dL Albumin/Globulin Ratio 0.8 L (1-2) Urine Color (Yellow) Urine Appearance (Clear) Urine pH (5.0-8.0) Ur Specific Nunda (1.005-1.030) Urine Protein (Negative) Urine Glucose (UA) (Negative) Urine Ketones (Negative) Urine Occult Blood (Negative) Urine Nitrite (Negative) Urine Bilirubin (Negative) Urine Urobilinogen (0.2-1.0) Ur Leukocyte Esterase (Negative) Urine RBC (0-5) /hpf Urine WBC (0-5) /hpf Ur Squamous Epith Cells (0-5) /hpf Urine Bacteria (FEW) /hpf Urine Mucus (FEW) /hpf SARS-CoV-2 RNA (LEXIE) (NEGATIVE) 05/17/21 05/17/21 05/17/21 Range/Units 16:55 17:00 22:08 WBC (3.98-10.04) K/mm3 RBC (3.98-5.22) M/mm3 Hgb (11.2-15.7) gm/dl Hct (34.1-44.9) % MCV (79.4-94.8) fl MCH (25.6-32.2) pg MCHC (32.2-35.5) g/dl RDW Std Deviation (36.4-46.3) fL Plt Count (182-369) K/mm3 MPV (9.4-12.3) fl Neut % (Auto) (34.0-71.1) % Lymph % (Auto) (19.3-51.7) % Amador % (Auto) (4.7-12.5) % Eos % (Auto) (0.7-5.8) Baso % (Auto) (0.1-1.2) % Neut # (Auto) (1.56-6.13) K/mm3 Lymph # (Auto) (1.18-3.74) K/mm3 Amador # (Auto) (0.24-0.36) K/mm3 Eos # (Auto) (0.04-0.36) K/mm3 Baso # (Auto) (0.01-0.08) K/mm3 PT (9.7-12.0) SECONDS INR Sodium (136-145) mEq/L Potassium (3.5-5.1) mEq/L Chloride (98-107) mEq/L Carbon Dioxide (21-32) mEq/L Anion Gap (5-15) BUN (7-18) mg/dL Creatinine (0.55-1.02) mg/dL Est Cr Clr Drug Dosing mL/min Estimated GFR (MDRD) (>60) mL/min BUN/Creatinine Ratio (14-18) Glucose (70-99) mg/dL POC Glucose 212 H (70-99) mg/dL Calcium (8.5-10.1) mg/dL Total Bilirubin (0.2-1.0) mg/dL AST (15-37) U/L ALT (14-59) U/L Alkaline Phosphatase (46-116) U/L C-Reactive Protein (<1.0) mg/dL Total Protein (6.4-8.2) g/dl Albumin (3.4-5.0) g/dl Globulin gm/dL Albumin/Globulin Ratio (1-2) Urine Color Yellow (Yellow) Urine Appearance Clear (Clear) Urine pH 6.0 (5.0-8.0) Ur Specific Nunda 1.015 (1.005-1.030) Urine Protein 2+ H (Negative) Urine Glucose (UA) Negative (Negative) Urine Ketones Negative (Negative) Urine Occult Blood 1+ H (Negative) Urine Nitrite Negative (Negative) Urine Bilirubin Negative (Negative) Urine Urobilinogen 0.2 (0.2-1.0) Ur Leukocyte Esterase Trace H (Negative) Urine RBC 5-10 H (0-5) /hpf Urine WBC 0-5 (0-5) /hpf Ur Squamous Epith Cells 0-5 (0-5) /hpf Urine Bacteria Occasional (FEW) /hpf Urine Mucus Not seen (FEW) /hpf SARS-CoV-2 RNA (LEXIE) Negative (NEGATIVE) 05/18/21 05/18/21 05/18/21 Range/Units 05:27 05:27 05:27 WBC 7.77 (3.98-10.04) K/mm3 RBC 3.15 L (3.98-5.22) M/mm3 Hgb 8.5 L D (11.2-15.7) gm/dl Hct 27.3 L (34.1-44.9) % MCV 86.7 (79.4-94.8) fl MCH 27.0 (25.6-32.2) pg MCHC 31.1 L (32.2-35.5) g/dl RDW Std Deviation 43.7 (36.4-46.3) fL Plt Count 139 L (182-369) K/mm3 MPV 10.5 (9.4-12.3) fl Neut % (Auto) 69.2 (34.0-71.1) % Lymph % (Auto) 14.5 L (19.3-51.7) % Amador % (Auto) 15.4 H (4.7-12.5) % Eos % (Auto) 0.5 L (0.7-5.8) Baso % (Auto) 0.3 (0.1-1.2) % Neut # (Auto) 5.37 (1.56-6.13) K/mm3 Lymph # (Auto) 1.13 L (1.18-3.74) K/mm3 Amador # (Auto) 1.20 H (0.24-0.36) K/mm3 Eos # (Auto) 0.04 (0.04-0.36) K/mm3 Baso # (Auto) 0.02 (0.01-0.08) K/mm3 PT 14.1 H (9.7-12.0) SECONDS INR 1.28 Sodium 136 (136-145) mEq/L Potassium 3.0 L (3.5-5.1) mEq/L Chloride 101 (98-107) mEq/L Carbon Dioxide 25 (21-32) mEq/L Anion Gap 13.0 (5-15) BUN 21 H (7-18) mg/dL Creatinine 1.2 H (0.55-1.02) mg/dL Est Cr Clr Drug Dosing 32.23 mL/min Estimated GFR (MDRD) 45 (>60) mL/min BUN/Creatinine Ratio 17.5 (14-18) Glucose 126 H (70-99) mg/dL POC Glucose (70-99) mg/dL Calcium 7.4 L (8.5-10.1) mg/dL Total Bilirubin (0.2-1.0) mg/dL AST (15-37) U/L ALT (14-59) U/L Alkaline Phosphatase (46-116) U/L C-Reactive Protein (<1.0) mg/dL Total Protein (6.4-8.2) g/dl Albumin (3.4-5.0) g/dl Globulin gm/dL Albumin/Globulin Ratio (1-2) Urine Color (Yellow) Urine Appearance (Clear) Urine pH (5.0-8.0) Ur Specific Nunda (1.005-1.030) Urine Protein (Negative) Urine Glucose (UA) (Negative) Urine Ketones (Negative) Urine Occult Blood (Negative) Urine Nitrite (Negative) Urine Bilirubin (Negative) Urine Urobilinogen (0.2-1.0) Ur Leukocyte Esterase (Negative) Urine RBC (0-5) /hpf Urine WBC (0-5) /hpf Ur Squamous Epith Cells (0-5) /hpf Urine Bacteria (FEW) /hpf Urine Mucus (FEW) /hpf SARS-CoV-2 RNA (LEXIE) (NEGATIVE) 05/18/21 Range/Units 06:27 WBC (3.98-10.04) K/mm3 RBC (3.98-5.22) M/mm3 Hgb (11.2-15.7) gm/dl Hct (34.1-44.9) % MCV (79.4-94.8) fl MCH (25.6-32.2) pg MCHC (32.2-35.5) g/dl RDW Std Deviation (36.4-46.3) fL Plt Count (182-369) K/mm3 MPV (9.4-12.3) fl Neut % (Auto) (34.0-71.1) % Lymph % (Auto) (19.3-51.7) % Amador % (Auto) (4.7-12.5) % Eos % (Auto) (0.7-5.8) Baso % (Auto) (0.1-1.2) % Neut # (Auto) (1.56-6.13) K/mm3 Lymph # (Auto) (1.18-3.74) K/mm3 Amador # (Auto) (0.24-0.36) K/mm3 Eos # (Auto) (0.04-0.36) K/mm3 Baso # (Auto) (0.01-0.08) K/mm3 PT (9.7-12.0) SECONDS INR Sodium (136-145) mEq/L Potassium (3.5-5.1) mEq/L Chloride (98-107) mEq/L Carbon Dioxide (21-32) mEq/L Anion Gap (5-15) BUN (7-18) mg/dL Creatinine (0.55-1.02) mg/dL Est Cr Clr Drug Dosing mL/min Estimated GFR (MDRD) (>60) mL/min BUN/Creatinine Ratio (14-18) Glucose (70-99) mg/dL POC Glucose 107 H (70-99) mg/dL Calcium (8.5-10.1) mg/dL Total Bilirubin (0.2-1.0) mg/dL AST (15-37) U/L ALT (14-59) U/L Alkaline Phosphatase (46-116) U/L C-Reactive Protein (<1.0) mg/dL Total Protein (6.4-8.2) g/dl Albumin (3.4-5.0) g/dl Globulin gm/dL Albumin/Globulin Ratio (1-2) Urine Color (Yellow) Urine Appearance (Clear) Urine pH (5.0-8.0) Ur Specific Nunda (1.005-1.030) Urine Protein (Negative) Urine Glucose (UA) (Negative) Urine Ketones (Negative) Urine Occult Blood (Negative) Urine Nitrite (Negative) Urine Bilirubin (Negative) Urine Urobilinogen (0.2-1.0) Ur Leukocyte Esterase (Negative) Urine RBC (0-5) /hpf Urine WBC (0-5) /hpf Ur Squamous Epith Cells (0-5) /hpf Urine Bacteria (FEW) /hpf Urine Mucus (FEW) /hpf SARS-CoV-2 RNA (LEXIE) (NEGATIVE) Med Orders - Current: Current Medications Acetaminophen (Acetaminophen 325 Mg Tab) 650 mg PO Q4H PRN PRN Reason: Pain (Mild 1-3)/fever Last Admin: 05/18/21 04:13 Dose: 650 mg Documented by: Amlodipine Besylate (Amlodipine 5 Mg Tab) 5 mg PO DAILY [facility] Aspirin (Aspirin 81 Mg Tab.Ec) 81 mg PO DAILY [facility] Last Admin: 05/18/21 08:32 Dose: 81 mg Documented by: Docusate Sodium (Docusate Sodium 100 Mg Cap) 100 mg PO BID PRN PRN Reason: Constipation Furosemide (Furosemide 80 Mg Tab) 80 mg PO MoWeFr@0900 TUAN Furosemide (Furosemide 40 Mg Tab) 40 mg PO SuTuThSa@0900 [facility] Cefazolin Sodium/Dextrose 2 gm (/ Premix) 50 mls @ 100 mls/hr IV Q12H TUAN Last Admin: 05/18/21 03:15 Dose: 100 mls/hr Documented by: Potassium Chloride 10 meq/ (Premix) 100 mls @ 100 mls/hr IV Q1H TUAN Stop: 05/18/21 11:14 Last Admin: 05/18/21 08:30 Dose: 100 mls/hr Documented by: Insulin Glargine (Insulin Glargine,Hum.Rec.Anlog 100 Unit/Ml 3 Ml Pen) 10 unit SUBCUT BEDTIME [facility] Last Admin: 05/17/21 22:42 Dose: 10 units Documented by: Insulin Glargine (Insulin Glargine,Hum.Rec.Anlog 100 Unit/Ml 3 Ml Pen) 15 unit SUBCUT DAILY [facility] Last Admin: 05/18/21 08:37 Dose: 15 units Documented by: Insulin Human Lispro (Insulin Lispro 100 Unit/Ml 3 Ml Kwikpen) 0 unit SUBCUT WITHMEALSANDBED [facility]; Protocol Last Admin: 05/18/21 08:39 Dose: Not Given Documented by: Losartan Potassium (Losartan 50 Mg Tab) 50 mg PO DAILY [facility] Metoprolol Tartrate (Metoprolol Tartrate 25 Mg Tab) 25 mg PO BID [facility] Morphine Sulfate (Morphine 2 Mg/Ml Syringe) 2 mg IVPUSH Q2H PRN PRN Reason: Pain (severe 7-10) Stop: 05/18/21 17:44 Calcium Citrate 630mg Vitamin D3 500 Iu Tabs Ptom 1 each PO DAILY [facility] Ondansetron HCl (Ondansetron 4 Mg/2 Ml Sdv) 4 mg IV Q4H PRN PRN Reason: Nausea/Vomiting Rosuvastatin Calcium (Rosuvastatin 10 Mg Tab) 20 mg PO DAILY [facility] Last Admin: 05/18/21 08:32 Dose: 20 mg Documented by: Sertraline HCl (Sertraline 50 Mg Tab) 50 mg PO BEDTIME [facility] Last Admin: 05/17/21 22:41 Dose: 50 mg Documented by: Sodium Chloride (Sodium Chloride 0.9% 10 Ml Syringe) 10 ml FLUSH ASDIRECTED PRN PRN Reason: Keep Vein Open Warfarin Sodium (Warfarin 5 Mg Tab) 2.5 mg PO TUTHSA [facility] Warfarin Sodium (Warfarin 5 Mg Tab) 5 mg PO SUMOWETHFR [facility] Discontinued Medications Aspirin (Aspirin 81 Mg Tab.Chew) 81 mg PO DAILY [facility] Furosemide (Furosemide 40 Mg Tab) 80 mg PO MOWEFR [facility] Last Admin: 05/17/21 19:50 Dose: Not Given Documented by: Furosemide (Furosemide 40 Mg Tab) 40 mg PO SUTUTHSA [facility] Ceftriaxone Sodium 2 gm/ (Sodium Chloride) 100 mls @ 200 mls/hr IV ONETIME ONE Stop: 05/17/21 16:22 Last Admin: 05/17/21 16:59 Dose: 200 mls/hr Documented by: Sodium Chloride (Normal Saline) 1,000 mls @ 75 mls/hr IV NOW STA Stop: 05/18/21 05:13 Last Admin: 05/17/21 16:58 Dose: 75 mls/hr Documented by: Vancomycin HCl 1 gm/Vancomycin HCl 250 mg/ Sodium Chloride 250 mls @ 166 mls/hr IV ONETIME ONE Stop: 05/17/21 18:00 Last Admin: 05/17/21 17:33 Dose: 166 mls/hr Documented by: Cefazolin Sodium 2 gm/ Sodium (Chloride) 50 mls @ 100 mls/hr IV Q8H [facility] Last Admin: 05/17/21 19:50 Dose: Not Given Documented by: Potassium Chloride 10 meq/ (Premix) 100 mls @ 100 mls/hr IV Q1H [facility] Stop: 05/17/21 21:59 Last Admin: 05/18/21 00:37 Dose: 100 mls/hr Documented by: Metoprolol Tartrate (Metoprolol Tartrate 50 Mg Tab) 25 mg PO BID [facility] Last Admin: 05/17/21 20:05 Dose: 25 mg Documented by: Non-Formulary Medication (Rosuvastatin) 20 mg PO DAILY [facility] Non-Formulary Medication (Sertraline) 50 mg PO BEDTIME [facility] Last Admin: 05/17/21 22:56 Dose: Not Given Documented by: Non-Formulary Medication (Valsartan [Valsartan]) 80 mg PO DAILY [facility] Valsartan 160 Tab (Ptom) 80 mg PO DAILY [facility] Sodium Chloride (Sodium Chloride 0.9% 10 Ml Syringe) 10 ml FLUSH ASDIRECTED PRN PRN Reason: Keep Vein Open Last Admin: 05/17/21 17:00 Dose: 10 ml Documented by: Vancomycin HCl (Pharmacy To Dose - Vancomycin) 1 dose .XX ONETIME ONE Stop: 05/17/21 16:02 Last Admin: 05/17/21 17:00 Dose: Not Given Documented by: Warfarin Sodium (Warfarin 5 Mg Tab) 2.5 mg PO TUTA [facility] Warfarin Sodium (Warfarin 5 Mg Tab) 5 mg PO SUMOWETHFR [facility] Last Admin: 05/17/21 19:50 Dose: Not Given Documented by: Warfarin Sodium (Warfarin 5 Mg Tab) 5 mg PO ONETIME ONE Stop: 05/17/21 22:31 Last Admin: 05/17/21 22:40 Dose: 5 mg Documented by: - Exam Quality Assessment: DVT Prophylaxis. No: Supplemental Oxygen General: Alert, No Acute Distress Lungs: Clear to Auscultation, Normal Respiratory Effort Cardiovascular: Regular Rate GI/Abdominal Exam: Normal Bowel Sounds, Soft, Non-Tender Extremities: Pedal Edema (Right foot), Leg Pain, Redness (Mild) Skin: Warm, Other (Mild calor in the right lower extremity below the knee as opposed to the left lower. Mild patchy erythematous skin. Some anterior bruising. No signs of abscess. No induration.) - Patient Data Lab Results Last 24 hrs: Laboratory Results - last 24 hr 05/17/21 05/17/21 05/17/21 Range/Units 16:24 16:24 16:24 WBC 9.54 (3.98-10.04) K/mm3 RBC 3.74 L (3.98-5.22) M/mm3 Hgb 10.1 L (11.2-15.7) gm/dl Hct 32.5 L (34.1-44.9) % MCV 86.9 (79.4-94.8) fl MCH 27.0 (25.6-32.2) pg MCHC 31.1 L (32.2-35.5) g/dl RDW Std Deviation 45.1 (36.4-46.3) fL Plt Count 164 L (182-369) K/mm3 MPV 10.9 (9.4-12.3) fl Neut % (Auto) 86.4 H (34.0-71.1) % Lymph % (Auto) 6.1 L (19.3-51.7) % Amador % (Auto) 7.0 (4.7-12.5) % Eos % (Auto) 0.1 L (0.7-5.8) Baso % (Auto) 0.2 (0.1-1.2) % Neut # (Auto) 8.24 H (1.56-6.13) K/mm3 Lymph # (Auto) 0.58 L (1.18-3.74) K/mm3 Amador # (Auto) 0.67 H (0.24-0.36) K/mm3 Eos # (Auto) 0.01 L (0.04-0.36) K/mm3 Baso # (Auto) 0.02 (0.01-0.08) K/mm3 PT 14.4 H D (9.7-12.0) SECONDS INR 1.31 Sodium 135 L (136-145) mEq/L Potassium 3.1 L (3.5-5.1) mEq/L Chloride 96 L (98-107) mEq/L Carbon Dioxide 27 (21-32) mEq/L Anion Gap 15.1 H (5-15) BUN 25 H (7-18) mg/dL Creatinine 1.5 H (0.55-1.02) mg/dL Est Cr Clr Drug Dosing 25.78 mL/min Estimated GFR (MDRD) 35 (>60) mL/min BUN/Creatinine Ratio 16.7 (14-18) Glucose 135 H (70-99) mg/dL POC Glucose (70-99) mg/dL Calcium 8.3 L (8.5-10.1) mg/dL Total Bilirubin 0.8 (0.2-1.0) mg/dL AST 53 H (15-37) U/L ALT 55 (14-59) U/L Alkaline Phosphatase 113 (46-116) U/L C-Reactive Protein 11.2 H* (<1.0) mg/dL Total Protein 7.5 (6.4-8.2) g/dl Albumin 3.4 (3.4-5.0) g/dl Globulin 4.1 gm/dL Albumin/Globulin Ratio 0.8 L (1-2) Urine Color (Yellow) Urine Appearance (Clear) Urine pH (5.0-8.0) Ur Specific Nunda (1.005-1.030) Urine Protein (Negative) Urine Glucose (UA) (Negative) Urine Ketones (Negative) Urine Occult Blood (Negative) Urine Nitrite (Negative) Urine Bilirubin (Negative) Urine Urobilinogen (0.2-1.0) Ur Leukocyte Esterase (Negative) Urine RBC (0-5) /hpf Urine WBC (0-5) /hpf Ur Squamous Epith Cells (0-5) /hpf Urine Bacteria (FEW) /hpf Urine Mucus (FEW) /hpf SARS-CoV-2 RNA (LEXIE) (NEGATIVE) 05/17/21 05/17/21 05/17/21 Range/Units 16:55 17:00 22:08 WBC (3.98-10.04) K/mm3 RBC (3.98-5.22) M/mm3 Hgb (11.2-15.7) gm/dl Hct (34.1-44.9) % MCV (79.4-94.8) fl MCH (25.6-32.2) pg MCHC (32.2-35.5) g/dl RDW Std Deviation (36.4-46.3) fL Plt Count (182-369) K/mm3 MPV (9.4-12.3) fl Neut % (Auto) (34.0-71.1) % Lymph % (Auto) (19.3-51.7) % Amador % (Auto) (4.7-12.5) % Eos % (Auto) (0.7-5.8) Baso % (Auto) (0.1-1.2) % Neut # (Auto) (1.56-6.13) K/mm3 Lymph # (Auto) (1.18-3.74) K/mm3 Amador # (Auto) (0.24-0.36) K/mm3 Eos # (Auto) (0.04-0.36) K/mm3 Baso # (Auto) (0.01-0.08) K/mm3 PT (9.7-12.0) SECONDS INR Sodium (136-145) mEq/L Potassium (3.5-5.1) mEq/L Chloride (98-107) mEq/L Carbon Dioxide (21-32) mEq/L Anion Gap (5-15) BUN (7-18) mg/dL Creatinine (0.55-1.02) mg/dL Est Cr Clr Drug Dosing mL/min Estimated GFR (MDRD) (>60) mL/min BUN/Creatinine Ratio (14-18) Glucose (70-99) mg/dL POC Glucose 212 H (70-99) mg/dL Calcium (8.5-10.1) mg/dL Total Bilirubin (0.2-1.0) mg/dL AST (15-37) U/L ALT (14-59) U/L Alkaline Phosphatase (46-116) U/L C-Reactive Protein (<1.0) mg/dL Total Protein (6.4-8.2) g/dl Albumin (3.4-5.0) g/dl Globulin gm/dL Albumin/Globulin Ratio (1-2) Urine Color Yellow (Yellow) Urine Appearance Clear (Clear) Urine pH 6.0 (5.0-8.0) Ur Specific Nunda 1.015 (1.005-1.030) Urine Protein 2+ H (Negative) Urine Glucose (UA) Negative (Negative) Urine Ketones Negative (Negative) Urine Occult Blood 1+ H (Negative) Urine Nitrite Negative (Negative) Urine Bilirubin Negative (Negative) Urine Urobilinogen 0.2 (0.2-1.0) Ur Leukocyte Esterase Trace H (Negative) Urine RBC 5-10 H (0-5) /hpf Urine WBC 0-5 (0-5) /hpf Ur Squamous Epith Cells 0-5 (0-5) /hpf Urine Bacteria Occasional (FEW) /hpf Urine Mucus Not seen (FEW) /hpf SARS-CoV-2 RNA (LEXIE) Negative (NEGATIVE) 05/18/21 05/18/21 05/18/21 Range/Units 05:27 05:27 05:27 WBC 7.77 (3.98-10.04) K/mm3 RBC 3.15 L (3.98-5.22) M/mm3 Hgb 8.5 L D (11.2-15.7) gm/dl Hct 27.3 L (34.1-44.9) % MCV 86.7 (79.4-94.8) fl MCH 27.0 (25.6-32.2) pg MCHC 31.1 L (32.2-35.5) g/dl RDW Std Deviation 43.7 (36.4-46.3) fL Plt Count 139 L (182-369) K/mm3 MPV 10.5 (9.4-12.3) fl Neut % (Auto) 69.2 (34.0-71.1) % Lymph % (Auto) 14.5 L (19.3-51.7) % Amador % (Auto) 15.4 H (4.7-12.5) % Eos % (Auto) 0.5 L (0.7-5.8) Baso % (Auto) 0.3 (0.1-1.2) % Neut # (Auto) 5.37 (1.56-6.13) K/mm3 Lymph # (Auto) 1.13 L (1.18-3.74) K/mm3 Amador # (Auto) 1.20 H (0.24-0.36) K/mm3 Eos # (Auto) 0.04 (0.04-0.36) K/mm3 Baso # (Auto) 0.02 (0.01-0.08) K/mm3 PT 14.1 H (9.7-12.0) SECONDS INR 1.28 Sodium 136 (136-145) mEq/L Potassium 3.0 L (3.5-5.1) mEq/L Chloride 101 (98-107) mEq/L Carbon Dioxide 25 (21-32) mEq/L Anion Gap 13.0 (5-15) BUN 21 H (7-18) mg/dL Creatinine 1.2 H (0.55-1.02) mg/dL Est Cr Clr Drug Dosing 32.23 mL/min Estimated GFR (MDRD) 45 (>60) mL/min BUN/Creatinine Ratio 17.5 (14-18) Glucose 126 H (70-99) mg/dL POC Glucose (70-99) mg/dL Calcium 7.4 L (8.5-10.1) mg/dL Total Bilirubin (0.2-1.0) mg/dL AST (15-37) U/L ALT (14-59) U/L Alkaline Phosphatase (46-116) U/L C-Reactive Protein (<1.0) mg/dL Total Protein (6.4-8.2) g/dl Albumin (3.4-5.0) g/dl Globulin gm/dL Albumin/Globulin Ratio (1-2) Urine Color (Yellow) Urine Appearance (Clear) Urine pH (5.0-8.0) Ur Specific Nunda (1.005-1.030) Urine Protein (Negative) Urine Glucose (UA) (Negative) Urine Ketones (Negative) Urine Occult Blood (Negative) Urine Nitrite (Negative) Urine Bilirubin (Negative) Urine Urobilinogen (0.2-1.0) Ur Leukocyte Esterase (Negative) Urine RBC (0-5) /hpf Urine WBC (0-5) /hpf Ur Squamous Epith Cells (0-5) /hpf Urine Bacteria (FEW) /hpf Urine Mucus (FEW) /hpf SARS-CoV-2 RNA (LEXIE) (NEGATIVE) 05/18/21 Range/Units 06:27 WBC (3.98-10.04) K/mm3 RBC (3.98-5.22) M/mm3 Hgb (11.2-15.7) gm/dl Hct (34.1-44.9) % MCV (79.4-94.8) fl MCH (25.6-32.2) pg MCHC (32.2-35.5) g/dl RDW Std Deviation (36.4-46.3) fL Plt Count (182-369) K/mm3 MPV (9.4-12.3) fl Neut % (Auto) (34.0-71.1) % Lymph % (Auto) (19.3-51.7) % Amador % (Auto) (4.7-12.5) % Eos % (Auto) (0.7-5.8) Baso % (Auto) (0.1-1.2) % Neut # (Auto) (1.56-6.13) K/mm3 Lymph # (Auto) (1.18-3.74) K/mm3 Amador # (Auto) (0.24-0.36) K/mm3 Eos # (Auto) (0.04-0.36) K/mm3 Baso # (Auto) (0.01-0.08) K/mm3 PT (9.7-12.0) SECONDS INR Sodium (136-145) mEq/L Potassium (3.5-5.1) mEq/L Chloride (98-107) mEq/L Carbon Dioxide (21-32) mEq/L Anion Gap (5-15) BUN (7-18) mg/dL Creatinine (0.55-1.02) mg/dL Est Cr Clr Drug Dosing mL/min Estimated GFR (MDRD) (>60) mL/min BUN/Creatinine Ratio (14-18) Glucose (70-99) mg/dL POC Glucose 107 H (70-99) mg/dL Calcium (8.5-10.1) mg/dL Total Bilirubin (0.2-1.0) mg/dL AST (15-37) U/L ALT (14-59) U/L Alkaline Phosphatase (46-116) U/L C-Reactive Protein (<1.0) mg/dL Total Protein (6.4-8.2) g/dl Albumin (3.4-5.0) g/dl Globulin gm/dL Albumin/Globulin Ratio (1-2) Urine Color (Yellow) Urine Appearance (Clear) Urine pH (5.0-8.0) Ur Specific Nunda (1.005-1.030) Urine Protein (Negative) Urine Glucose (UA) (Negative) Urine Ketones (Negative) Urine Occult Blood (Negative) Urine Nitrite (Negative) Urine Bilirubin (Negative) Urine Urobilinogen (0.2-1.0) Ur Leukocyte Esterase (Negative) Urine RBC (0-5) /hpf Urine WBC (0-5) /hpf Ur Squamous Epith Cells (0-5) /hpf Urine Bacteria (FEW) /hpf Urine Mucus (FEW) /hpf SARS-CoV-2 RNA (LEXIE) (NEGATIVE) Result Diagrams: 05/18/21 05:27 05/18/21 05:27 Sepsis Event Note - Evaluation Sepsis Screening Result: No Definite Risk - Focused Exam Vital Signs: Vital Signs Temp Pulse Resp BP Pulse Ox 05/18/21 08:01 97.3 F 56 L 15 110/53 L 99 05/18/21 04:21 56 L 16 105/50 L 99 05/17/21 22:48 98.4 F 68 16 115/55 L 97 - Problem List Review Problem List Initiated/Reviewed/Updated: Yes - My Orders Last 24 Hours: My Active Orders 05/17/21 17:43 Oxygen Therapy [RC] PRN VTE/DVT Education [RC] PER UNIT ROUTINE Vital Signs [RC] Q8HR OT Evaluation and Treatment [CONS] Routine PT Evaluation and Treatment [CONS] Routine Acetaminophen [TylenoL] 650 mg PO Q4H PRN Docusate Sodium [Colace] 100 mg PO BID PRN Morphine 2 mg IVPUSH Q2H PRN Ondansetron [Zofran] 4 mg IV Q4H PRN Sodium Chloride 0.9% [Saline Flush] 10 ml FLUSH ASDIRECTED PRN Peripheral IV Insertion Adult [OM.PC] Routine Saline Lock Insert [OM.PC] Routine 05/17/21 18:05 Resuscitation Status Stat 12/13/21 20:19 Activity as Tolerated [RC] .Routine 05/17/21 21:00 Insulin Lispro [HumaLOG] See Protocol SUBCUT WITHMEALSANDBED 05/17/21 22:30 Insulin Glargine,Hum.Rec.Anlog [Semglee Pen] 10 unit SUBCUT BEDTIME Sertraline [Zoloft] 50 mg PO BEDTIME 05/18/21 04:00 ceFAZolin [Ancef] 2 gm Premix Bag 1 bag IV Q12H 05/18/21 07:15 Potassium Chloride [KCl in Water 10 MEQ/100 ML] 10 meq Premix Bag 1 bag IV Q1H 05/18/21 08:56 Venous Doppler Lwr Ext Bi [US] Routine 05/18/21 09:00 Aspirin [Halfprin] 81 mg PO DAILY Furosemide [Lasix] 40 mg PO [id number]@0900 Insulin Glargine,Hum.Rec.Anlog [Semglee Pen] 15 unit SUBCUT DAILY Losartan [Cozaar] 50 mg PO DAILY Metoprolol Tartrate [Lopressor] 25 mg PO BID Non-Formulary Medication [NF Drug] 1 each PO DAILY Rosuvastatin [Crestor] 20 mg PO DAILY amLODIPine [Norvasc] 5 mg PO DAILY 05/18/21 18:00 Warfarin [Coumadin] 2.5 mg PO TUTHSA 05/19/21 09:00 Furosemide [Lasix] 80 mg PO MoWeFr@0900 05/19/21 18:00 Warfarin [Coumadin] 5 mg PO SUMOWETHFR - Plan Plan:: 70-year-old female presents with right lower extremity pain, mild erythema, and calor below the knee. 1. Systemic inflammatory response syndrome. According to vital signs and laboratory studies available documented in the computer at time of admission, she does not officially meet sepsis criteria. SIRS secondary to right lower extremity skin and soft tissue infection. Plan as below. 2. Skin and soft tissue infection. Continue with Ancef 2 g every 8 hours. Despite the patient being diabetic I believe that Ancef at that dose would be sufficient for antimicrobial coverage. We will broaden if necessary. Monitor vitals. We will have the erythematous area orders marked by nursing. Considering the amount of discomfort that she is and while ambulating and more so edema of the right lower extremity as compared to the left, will rule out DVT with ultrasound today. Patient's INR subtherapeutic at time of admission. 3. Chronic systolic congestive heart failure. Continue daily Lasix therapy and home cardiac regimen with holding parameters as necessary. Status post AICD. 4. Type 2 diabetes mellitus. Continue Lantus. Hold oral hypoglycemics while in the hospital. Invoke hospital hyperglycemia protocol. 5. CKD stage III borderline stage IV. Avoid nephrotoxins. Can safely continue losartan at this time as well as diuretics. Intermittent check of labs. Renally dose medications if necessary. 6. History of atrial arrhythmia. On Coumadin. Continue home regimen. Intermittent PT/INR checks. INR subtherapeutic at time of admission. All other medical comorbidities are stable and nonactive conditions, will continue home medications at regular dose with the exception of unnecessary vitamins while admitted. CODE STATUS: DNR/DNI. DVT prophylaxis with Coumadin.
[2021-05-18] MEDS ORDERED: Sodium Chloride 0.9% 250 ML IV SCH (09:30)
[2021-05-18] MEDS: amLODIPine 5 MG Tab PO SCH (10:33)
[2021-05-18] MEDS: Furosemide 40 MG Tab PO SCH (10:34)
[2021-05-18] MEDS: Losartan 50 MG Tab PO SCH (10:35)
[2021-05-18] MEDS: Metoprolol Tartrate 25 MG Tab PO SCH ×2 (10:35→21:13)
[2021-05-18] MEDS: CALCIUM CITRATE PO SCH (10:35)
[2021-05-18] MEDS: [UNRECOGNIZED DRUG - OTHER] PO SCH (10:35)
--- NOTE | 2021-05-18 10:38 | US ---
Bilateral lower extremity deep venous ultrasound: Duplex and color Doppler evaluation was obtained of the right and left common femoral, proximal greater saphenous, superficial femoral, popliteal, posterior tibial and peroneal veins. Comparison: No prior venous imaging is available. Findings: Normal phasic flow, augmentation and compression are seen. Impression: 1. Nothing is seen to indicate deep venous thrombosis within the right or left lower extremities. Diagnostic code #1
[2021-05-18] MEDS ORDERED: Potassium Chloride 20 MEQ Tab.ER PO ONE (11:24)
[2021-05-18] MEDS ORDERED: Warfarin 5 MG Tab PO SCH ×3 (17:50→18:00)
[2021-05-18] MEDS ORDERED: Furosemide 40 MG Tab PO SCH (17:50)
[2021-05-18] MEDS: Sertraline 50 MG Tab PO SCH (21:13)
[2021-05-19] MEDS: ceFAZolin 2 GM in Premix Bag 1 BAG IV SCH ×2 (03:45→15:45)
[2021-05-19] MEDS: Insulin Lispro 100 Unit/ML 3 ML KwikPen SUBCUT SCH ×4 (06:48→21:22)
--- NOTE | 2021-05-19 08:14 | PCM.PN ---
- General Info Date of Service: 05/19/21 Admission Dx/Problem (Free Text): Admission Diagnosis/Problem Admission Diagnosis/Problem Cellulitis Functional Status: Reports: Pain Controlled, Tolerating Diet, Ambulating (Pain with ambulation), Urinating. Denies: New Symptoms - Review of Systems General: Reports: No Symptoms, Weakness. Denies: Fever, Fatigue, Malaise, Chills HEENT: Reports: No Symptoms. Denies: Headaches, Sore Throat Pulmonary: Reports: No Symptoms. Denies: Shortness of Breath, Cough, Sputum, Wheezing Cardiovascular: Reports: No Symptoms, Edema (Right-sided lower extremity). Denies: Chest Pain, Palpitations, Dyspnea on Exertion Gastrointestinal: Reports: No Symptoms. Denies: Abdominal Pain, Constipation, Diarrhea, Nausea, Vomiting Genitourinary: Reports: No Symptoms. Denies: Pain 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: Reports: Leg Pain (Right leg) Skin: Reports: No Symptoms Neurological: Reports: Difficulty Walking, Weakness, Gait Disturbance. Denies: Confusion, Dizziness, Headache, Numbness, Pre-Existing Deficit, Seizure, Syncope, Tingling, Trouble Speaking Psychiatric: Reports: No Symptoms. Denies: Confusion - Patient Data Vitals - Most Recent: Last Vital Signs Temp 99.1 F 05/19/21 03:40 Pulse 60 05/19/21 03:40 Resp 16 05/19/21 03:40 BP 98/43 L 05/19/21 03:40 Pulse Ox 97 05/19/21 03:40 Weight - Most Recent: 142 lb 14.4 oz I&O - Last 24 Hours: Intake & Output 05/18/21 05/19/21 05/19/21 22:59 06:59 14:59 Intake Total 1410 642 Output Total 700 900 Balance 710 -258 Lab Results Last 24 Hours: Laboratory Results - last 24 hr 05/18/21 05/18/21 05/18/21 Range/Units 11:16 16:46 21:34 WBC (3.98-10.04) K/mm3 RBC (3.98-5.22) M/mm3 Hgb (11.2-15.7) gm/dl Hct (34.1-44.9) % MCV (79.4-94.8) fl MCH (25.6-32.2) pg MCHC (32.2-35.5) g/dl RDW Std Deviation (36.4-46.3) fL Plt Count (182-369) K/mm3 MPV (9.4-12.3) fl Neut % (Auto) (34.0-71.1) % Lymph % (Auto) (19.3-51.7) % [place] % (Auto) (4.7-12.5) % Eos % (Auto) (0.7-5.8) Baso % (Auto) (0.1-1.2) % Neut # (Auto) (1.56-6.13) K/mm3 Lymph # (Auto) (1.18-3.74) K/mm3 [place] # (Auto) (0.24-0.36) K/mm3 Eos # (Auto) (0.04-0.36) K/mm3 Baso # (Auto) (0.01-0.08) K/mm3 PT (9.7-12.0) SECONDS INR Sodium (136-145) mEq/L Potassium (3.5-5.1) mEq/L Chloride (98-107) mEq/L Carbon Dioxide (21-32) mEq/L Anion Gap (5-15) BUN (7-18) mg/dL Creatinine (0.55-1.02) mg/dL Est Cr Clr Drug Dosing mL/min Estimated GFR (MDRD) (>60) mL/min BUN/Creatinine Ratio (14-18) Glucose (70-99) mg/dL POC Glucose 209 H 294 H 236 H (70-99) mg/dL Calcium (8.5-10.1) mg/dL 05/19/21 05/19/21 05/19/21 Range/Units 05:02 05:02 05:02 WBC 9.55 (3.98-10.04) K/mm3 RBC 3.39 L (3.98-5.22) M/mm3 Hgb 9.1 L (11.2-15.7) gm/dl Hct 29.4 L (34.1-44.9) % MCV 86.7 (79.4-94.8) fl MCH 26.8 (25.6-32.2) pg MCHC 31.0 L (32.2-35.5) g/dl RDW Std Deviation 44.0 (36.4-46.3) fL Plt Count 176 L (182-369) K/mm3 MPV 11.1 (9.4-12.3) fl Neut % (Auto) 71.1 (34.0-71.1) % Lymph % (Auto) 13.3 L (19.3-51.7) % [place] % (Auto) 14.2 H (4.7-12.5) % Eos % (Auto) 0.9 (0.7-5.8) Baso % (Auto) 0.2 (0.1-1.2) % Neut # (Auto) 6.78 H (1.56-6.13) K/mm3 Lymph # (Auto) 1.27 (1.18-3.74) K/mm3 [place] # (Auto) 1.36 H (0.24-0.36) K/mm3 Eos # (Auto) 0.09 (0.04-0.36) K/mm3 Baso # (Auto) 0.02 (0.01-0.08) K/mm3 PT 19.1 H D (9.7-12.0) SECONDS INR 1.76 Sodium 137 (136-145) mEq/L Potassium 3.6 (3.5-5.1) mEq/L Chloride 101 (98-107) mEq/L Carbon Dioxide 25 (21-32) mEq/L Anion Gap 14.6 (5-15) BUN 18 (7-18) mg/dL Creatinine 1.3 H (0.55-1.02) mg/dL Est Cr Clr Drug Dosing 29.75 mL/min Estimated GFR (MDRD) 41 (>60) mL/min BUN/Creatinine Ratio 13.8 L (14-18) Glucose 127 H (70-99) mg/dL POC Glucose (70-99) mg/dL Calcium 8.0 L (8.5-10.1) mg/dL 05/19/21 Range/Units 06:14 WBC (3.98-10.04) K/mm3 RBC (3.98-5.22) M/mm3 Hgb (11.2-15.7) gm/dl Hct (34.1-44.9) % MCV (79.4-94.8) fl MCH (25.6-32.2) pg MCHC (32.2-35.5) g/dl RDW Std Deviation (36.4-46.3) fL Plt Count (182-369) K/mm3 MPV (9.4-12.3) fl Neut % (Auto) (34.0-71.1) % Lymph % (Auto) (19.3-51.7) % [place] % (Auto) (4.7-12.5) % Eos % (Auto) (0.7-5.8) Baso % (Auto) (0.1-1.2) % Neut # (Auto) (1.56-6.13) K/mm3 Lymph # (Auto) (1.18-3.74) K/mm3 [place] # (Auto) (0.24-0.36) K/mm3 Eos # (Auto) (0.04-0.36) K/mm3 Baso # (Auto) (0.01-0.08) K/mm3 PT (9.7-12.0) SECONDS INR Sodium (136-145) mEq/L Potassium (3.5-5.1) mEq/L Chloride (98-107) mEq/L Carbon Dioxide (21-32) mEq/L Anion Gap (5-15) BUN (7-18) mg/dL Creatinine (0.55-1.02) mg/dL Est Cr Clr Drug Dosing mL/min Estimated GFR (MDRD) (>60) mL/min BUN/Creatinine Ratio (14-18) Glucose (70-99) mg/dL POC Glucose 119 H (70-99) mg/dL Calcium (8.5-10.1) mg/dL Med Orders - Current: Current Medications Acetaminophen (Acetaminophen 325 Mg Tab) 650 mg PO Q4H PRN PRN Reason: Pain (Mild 1-3)/fever Last Admin: 05/18/21 23:02 Dose: 650 mg Documented by: Amlodipine Besylate (Amlodipine 5 Mg Tab) 5 mg PO DAILY [facility] Last Admin: 05/18/21 10:33 Dose: 5 mg Documented by: Aspirin (Aspirin 81 Mg Tab.Ec) 81 mg PO DAILY [facility] Last Admin: 05/18/21 08:32 Dose: 81 mg Documented by: Docusate Sodium (Docusate Sodium 100 Mg Cap) 100 mg PO BID PRN PRN Reason: Constipation Furosemide (Furosemide 80 Mg Tab) 80 mg PO MoWeFr@0900 [facility] Furosemide (Furosemide 40 Mg Tab) 40 mg PO SuTuThSa@0900 [facility] Last Admin: 05/18/21 10:34 Dose: 40 mg Documented by: Cefazolin Sodium/Dextrose 2 gm (/ Premix) 50 mls @ 100 mls/hr IV Q12H [facility] Last Admin: 05/19/21 03:45 Dose: 100 mls/hr Documented by: Sodium Chloride (Normal Saline) 250 mls @ 50 mls/hr IV ASDIRECTED [facility] Last Admin: 05/18/21 10:37 Dose: 50 mls/hr Documented by: Insulin Glargine (Insulin Glargine,Hum.Rec.Anlog 100 Unit/Ml 3 Ml Pen) 10 unit SUBCUT BEDTIME [facility] Last Admin: 05/18/21 23:05 Dose: 10 units Documented by: Insulin Glargine (Insulin Glargine,Hum.Rec.Anlog 100 Unit/Ml 3 Ml Pen) 15 unit SUBCUT DAILY [facility] Last Admin: 05/18/21 08:37 Dose: 15 units Documented by: Insulin Human Lispro (Insulin Lispro 100 Unit/Ml 3 Ml Kwikpen) 0 unit SUBCUT WITHMEALSANDBED [facility]; Protocol Last Admin: 05/19/21 06:48 Dose: Not Given Documented by: Losartan Potassium (Losartan 50 Mg Tab) 50 mg PO DAILY [facility] Last Admin: 05/18/21 10:35 Dose: Not Given Documented by: Metoprolol Tartrate (Metoprolol Tartrate 25 Mg Tab) 25 mg PO BID [facility] Last Admin: 05/18/21 21:13 Dose: 25 mg Documented by: Calcium Citrate 630mg Vitamin D3 500 Iu Tabs Ptom 1 each PO DAILY [facility] Last Admin: 05/18/21 10:35 Dose: 1 each Documented by: Ondansetron HCl (Ondansetron 4 Mg/2 Ml Sdv) 4 mg IV Q4H PRN PRN Reason: Nausea/Vomiting Rosuvastatin Calcium (Rosuvastatin 10 Mg Tab) 20 mg PO DAILY [facility] Last Admin: 05/18/21 08:32 Dose: 20 mg Documented by: Sertraline HCl (Sertraline 50 Mg Tab) 50 mg PO BEDTIME [facility] Last Admin: 05/18/21 21:13 Dose: 50 mg Documented by: Sodium Chloride (Sodium Chloride 0.9% 10 Ml Syringe) 10 ml FLUSH ASDIRECTED PRN PRN Reason: Keep Vein Open Warfarin Sodium (Pharmacy To Dose - Warfarin) 0 dose PO ASDIRECTED PRN PRN Reason: RX TO DOSE WARFARIN Discontinued Medications Aspirin (Aspirin 81 Mg Tab.Chew) 81 mg PO DAILY [facility] Furosemide (Furosemide 40 Mg Tab) 80 mg PO MOWEFR [facility] Last Admin: 05/17/21 19:50 Dose: Not Given Documented by: Furosemide (Furosemide 40 Mg Tab) [facility] Ceftriaxone Sodium 2 gm/ (Sodium Chloride) 100 mls @ 200 mls/hr IV ONETIME ONE Stop: 05/17/21 16:22 Last Admin: 05/17/21 16:59 Dose: 200 mls/hr Documented by: Sodium Chloride (Normal Saline) 1,000 mls @ 75 mls/hr IV NOW STA Stop: 05/18/21 05:13 Last Admin: 05/17/21 16:58 Dose: 75 mls/hr Documented by: Vancomycin HCl 1 gm/Vancomycin HCl 250 mg/ Sodium Chloride 250 mls @ 166 mls/hr IV ONETIME ONE Stop: 05/17/21 18:00 Last Admin: 05/17/21 17:33 Dose: 166 mls/hr Documented by: Cefazolin Sodium 2 gm/ Sodium (Chloride) 50 mls @ 100 mls/hr IV Q8H [facility] Last Admin: 05/17/21 19:50 Dose: Not Given Documented by: Potassium Chloride 10 meq/ (Premix) 100 mls @ 100 mls/hr IV Q1H [facility] Stop: 05/17/21 21:59 Last Admin: 05/18/21 00:37 Dose: 100 mls/hr Documented by: Potassium Chloride 10 meq/ (Premix) 100 mls @ 100 mls/hr IV Q1H [facility] Stop: 05/18/21 11:14 Last Admin: 05/18/21 18:58 Dose: Not Given Documented by: Metoprolol Tartrate (Metoprolol Tartrate 50 Mg Tab) 25 mg PO BID [facility] Last Admin: 05/17/21 20:05 Dose: 25 mg Documented by: Morphine Sulfate (Morphine 2 Mg/Ml Syringe) 2 mg IVPUSH Q2H PRN PRN Reason: Pain (severe 7-10) Stop: 05/18/21 17:44 Non-Formulary Medication (Rosuvastatin) 20 mg PO DAILY [facility] Non-Formulary Medication (Sertraline) 50 mg PO BEDTIME [facility] Last Admin: 05/17/21 22:56 Dose: Not Given Documented by: Non-Formulary Medication (Valsartan [Valsartan]) 80 mg PO DAILY [facility] Valsartan 160 Tab (Ptom) 80 mg PO DAILY [facility] Potassium Chloride (Potassium Chloride 20 Meq Tab.Er) 40 meq PO ONETIME ONE Stop: 05/18/21 11:25 Last Admin: 05/18/21 11:39 Dose: 40 meq Documented by: Sodium Chloride (Sodium Chloride 0.9% 10 Ml Syringe) 10 ml FLUSH ASDIRECTED PRN PRN Reason: Keep Vein Open Last Admin: 05/17/21 17:00 Dose: 10 ml Documented by: Vancomycin HCl (Pharmacy To Dose - Vancomycin) 1 dose .XX ONETIME ONE Stop: 05/17/21 16:02 Last Admin: 05/17/21 17:00 Dose: Not Given Documented by: Warfarin Sodium (Warfarin 5 Mg Tab) 2.5 mg PO TUTA [facility] Warfarin Sodium (Warfarin 5 Mg Tab) 5 mg PO SUMOWETHFR [facility] Last Admin: 05/17/21 19:50 Dose: Not Given Documented by: Warfarin Sodium (Warfarin 5 Mg Tab) 5 mg PO ONETIME ONE Stop: 05/17/21 22:31 Last Admin: 05/17/21 22:40 Dose: 5 mg Documented by: Warfarin Sodium (Warfarin 5 Mg Tab) 5 mg PO QPM [facility] Stop: 05/18/21 18:01 Last Admin: 05/18/21 17:09 Dose: 5 mg Documented by: - Exam Quality Assessment: DVT Prophylaxis. No: Supplemental Oxygen, Urine Catheter General: Alert, Oriented, Cooperative, No Acute Distress HEENT: Pupils Equal, Pupils Reactive, Mucous Membr. Moist/[place] Neck: Supple, Trachea Midline Lungs: Clear to Auscultation, Normal Respiratory Effort Cardiovascular: Regular Rate, Regular Rhythm GI/Abdominal Exam: Normal Bowel Sounds, Soft, Non-Tender, No Distention (Female) Exam: Deferred Back Exam: Normal Inspection, Full Range of Motion Extremities: Normal Range of Motion, Non-Tender, Pedal Edema (Right lower extremity), Leg Pain (Right lower extremity) Skin: Warm, Dry, Intact Wound/Incisions: No Drainage, Erythema Improving Neurological: No New Focal Deficit Psy/Mental Status: Alert, Normal Affect, Normal Mood - Patient Data Lab Results Last 24 hrs: Laboratory Results - last 24 hr 05/18/21 05/18/21 05/18/21 Range/Units 11:16 16:46 21:34 WBC (3.98-10.04) K/mm3 RBC (3.98-5.22) M/mm3 Hgb (11.2-15.7) gm/dl Hct (34.1-44.9) % MCV (79.4-94.8) fl MCH (25.6-32.2) pg MCHC (32.2-35.5) g/dl RDW Std Deviation (36.4-46.3) fL Plt Count (182-369) K/mm3 MPV (9.4-12.3) fl Neut % (Auto) (34.0-71.1) % Lymph % (Auto) (19.3-51.7) % [place] % (Auto) (4.7-12.5) % Eos % (Auto) (0.7-5.8) Baso % (Auto) (0.1-1.2) % Neut # (Auto) (1.56-6.13) K/mm3 Lymph # (Auto) (1.18-3.74) K/mm3 [place] # (Auto) (0.24-0.36) K/mm3 Eos # (Auto) (0.04-0.36) K/mm3 Baso # (Auto) (0.01-0.08) K/mm3 PT (9.7-12.0) SECONDS INR Sodium (136-145) mEq/L Potassium (3.5-5.1) mEq/L Chloride (98-107) mEq/L Carbon Dioxide (21-32) mEq/L Anion Gap (5-15) BUN (7-18) mg/dL Creatinine (0.55-1.02) mg/dL Est Cr Clr Drug Dosing mL/min Estimated GFR (MDRD) (>60) mL/min BUN/Creatinine Ratio (14-18) Glucose (70-99) mg/dL POC Glucose 209 H 294 H 236 H (70-99) mg/dL Calcium (8.5-10.1) mg/dL 05/19/21 05/19/2121 Range/Units 05:02 05:02 05:02 WBC 9.55 (3.98-10.04) K/mm3 RBC 3.39 L (3.98-5.22) M/mm3 Hgb 9.1 L (11.2-15.7) gm/dl Hct 29.4 L (34.1-44.9) % MCV 86.7 (79.4-94.8) fl MCH 26.8 (25.6-32.2) pg MCHC 31.0 L (32.2-35.5) g/dl RDW Std Deviation 44.0 (36.4-46.3) fL Plt Count 176 L (182-369) K/mm3 MPV 11.1 (9.4-12.3) fl Neut % (Auto) 71.1 (34.0-71.1) % Lymph % (Auto) 13.3 L (19.3-51.7) % [place] % (Auto) 14.2 H (4.7-12.5) % Eos % (Auto) 0.9 (0.7-5.8) Baso % (Auto) 0.2 (0.1-1.2) % Neut # (Auto) 6.78 H (1.56-6.13) K/mm3 Lymph # (Auto) 1.27 (1.18-3.74) K/mm3 [place] # (Auto) 1.36 H (0.24-0.36) K/mm3 Eos # (Auto) 0.09 (0.04-0.36) K/mm3 Baso # (Auto) 0.02 (0.01-0.08) K/mm3 PT 19.1 H D (9.7-12.0) SECONDS INR 1.76 Sodium 137 (136-145) mEq/L Potassium 3.6 (3.5-5.1) mEq/L Chloride 101 (98-107) mEq/L Carbon Dioxide 25 (21-32) mEq/L Anion Gap 14.6 (5-15) BUN 18 (7-18) mg/dL Creatinine 1.3 H (0.55-1.02) mg/dL Est Cr Clr Drug Dosing 29.75 mL/min Estimated GFR (MDRD) 41 (>60) mL/min BUN/Creatinine Ratio 13.8 L (14-18) Glucose 127 H (70-99) mg/dL POC Glucose (70-99) mg/dL Calcium 8.0 L (8.5-10.1) mg/dL 05/19/21 Range/Units 06:14 WBC (3.98-10.04) K/mm3 RBC (3.98-5.22) M/mm3 Hgb (11.2-15.7) gm/dl Hct (34.1-44.9) % MCV (79.4-94.8) fl MCH (25.6-32.2) pg MCHC (32.2-35.5) g/dl RDW Std Deviation (36.4-46.3) fL Plt Count (182-369) K/mm3 MPV (9.4-12.3) fl Neut % (Auto) (34.0-71.1) % Lymph % (Auto) (19.3-51.7) % [place] % (Auto) (4.7-12.5) % Eos % (Auto) (0.7-5.8) Baso % (Auto) (0.1-1.2) % Neut # (Auto) (1.56-6.13) K/mm3 Lymph # (Auto) (1.18-3.74) K/mm3 [place] # (Auto) (0.24-0.36) K/mm3 Eos # (Auto) (0.04-0.36) K/mm3 Baso # (Auto) (0.01-0.08) K/mm3 PT (9.7-12.0) SECONDS INR Sodium (136-145) mEq/L Potassium (3.5-5.1) mEq/L Chloride (98-107) mEq/L Carbon Dioxide (21-32) mEq/L Anion Gap (5-15) BUN (7-18) mg/dL Creatinine (0.55-1.02) mg/dL Est Cr Clr Drug Dosing mL/min Estimated GFR (MDRD) (>60) mL/min BUN/Creatinine Ratio (14-18) Glucose (70-99) mg/dL POC Glucose 119 H (70-99) mg/dL Calcium (8.5-10.1) mg/dL Result Diagrams: 05/19/21 05:02 05/19/21 05:02 Sepsis Event Note - Evaluation Sepsis Screening Result: No Definite Risk - Focused Exam Vital Signs: Vital Signs Temp Pulse Resp BP Pulse Ox 05/19/21 03:40 99.1 F 60 16 98/43 L 97 05/18/21 21:13 94 117/63 05/18/21 20:25 99.3 F 64 16 117/63 99 - Problem List & Annotations (1) SIRS (systemic inflammatory response syndrome) SNOMED Code(s): 613039549 Code(s): R65.10 - SIRS OF NON-INFECTIOUS ORIGIN W/O ACUTE ORGAN DYSFUNCTION Status: Resolved Priority: High Current Visit: Yes (2) Systolic CHF SNOMED Code(s): 48860845, 795407217 Code(s): I50.20 - UNSPECIFIED SYSTOLIC (CONGESTIVE) HEART FAILURE Status: Chronic Priority: Medium Current Visit: Yes Qualifiers: Heart failure chronicity: chronic Qualified Code(s): I50.22 - Chronic systolic (congestive) heart failure (3) Type II diabetes mellitus SNOMED Code(s): 39926614 Code(s): E11.9 - TYPE 2 DIABETES MELLITUS WITHOUT COMPLICATIONS Status: Chronic Priority: High Current Visit: Yes Qualifiers: Diabetes mellitus longterm insulin use: with longterm use Diabetes mellitus complication status: with other specified complication Qualified Code(s): E11.69 - Type 2 diabetes mellitus with other specified complication; 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 (4) CKD (chronic kidney disease) stage 3, GFR 30-59 ml/min SNOMED Code(s): 419305672 Code(s): N18.30 - CHRONIC KIDNEY DISEASE, STAGE 3 UNSPECIFIED Status: Chronic Priority: Medium Current Visit: Yes Qualifiers: Chronic kidney disease stage 3 subtype: stage 3b (GFR 30-44) Qualified Code(s): N18.32 - Chronic kidney disease, stage 3b (5) History of atrial fibrillation SNOMED Code(s): 641689576 Code(s): Z86.79 - PERSONAL HISTORY OF OTHER DISEASES OF THE CIRCULATORY SYSTEM Status: Chronic Priority: Low Current Visit: No (6) Chronic anticoagulation SNOMED Code(s): 087069904 Code(s): Z79.01 - RESIDENTIAL (CURRENT) USE OF ANTICOAGULANTS Status: Chronic Priority: Medium Current Visit: Yes (7) Subtherapeutic international normalized ratio (INR) SNOMED Code(s): 150104662, 181068490 Code(s): R79.1 - ABNORMAL COAGULATION PROFILE Status: Acute Priority: High Current Visit: Yes (8) Anemia SNOMED Code(s): 322510649 Code(s): D64.9 - ANEMIA, UNSPECIFIED Status: Acute Priority: Medium Current Visit: Yes Qualifiers: Anemia type: unspecified type Qualified Code(s): D64.9 - Anemia, unspecified (9) Thrombocytopenia SNOMED Code(s): 448869335 Code(s): D69.6 - THROMBOCYTOPENIA, UNSPECIFIED Status: Acute Priority: Medium Current Visit: Yes (10) Cellulitis of lower extremity SNOMED Code(s): 290374929 Code(s): L03.119 - CELLULITIS OF UNSPECIFIED PART OF LIMB Status: Acute Priority: High Current Visit: Yes Qualifiers: Laterality: right Qualified Code(s): L03.115 - Cellulitis of right lower limb - Problem List Review Problem List Initiated/Reviewed/Updated: Yes - Assessment Assessment:: 05/19/2021: This is a 70-year-old female admitted to the floor for right lower extremity cellulitis. She was initially given Rocephin and vancomycin and ultimately was switched to Ancef. She was subtherapeutic with her INR value on admission and pharmacy is now dosing her warfarin. Lower extremity ultrasound was obtained to rule out DVT and was negative. Blood cultures have been negative. On admission patient was hyponatremic with a sodium of 135 and hypokalemic with a potassium of 3.1. Both have improved. Potassium was supplemented. Renal function has improved. Nursing did demarcate area of erythema and this has improved in the past 24 hours. Labs today show WBC of 9.55. Hemoglobin is 9.1. Platelets are 176,000 and are improving. Neutrophils are normal at 71.1%. INR today is 1.76. Sodium 137. Potassium 3.6. Chloride 101. Anion gap is 14.6. Creatinine 1.3. GFR is 41. Glucose has been 119-294. There have been no fevers. Overall she is doing quite well. Plan will be to discharge tomorrow after switching to p.o. antibiotics. She continues to work with PT and OT with continued pain in her right lower extremity. - Plan Plan:: 70-year-old female presents with right lower extremity pain, mild erythema, and calor below the knee. 1. Systemic inflammatory response syndrome, resolved According to vital signs and laboratory studies available documented in the computer at time of admission, she does not officially meet sepsis criteria. SIRS secondary to right lower extremity skin and soft tissue infection. Plan as below. 2. Skin and soft tissue infection. Continue with Ancef 2 g every 8 hours. Transition to PO abx tomorrow Despite the patient being diabetic I believe that Ancef at that dose would be sufficient for antimicrobial coverage. We will broaden if necessary. Monitor vitals. Erythema improving Lower extremity ultrasound negative for DVT. patient's INR subtherapeutic at time of admission. 3. Chronic systolic congestive heart failure. Continue daily Lasix therapy and home cardiac regimen with holding parameters as necessary. Status post AICD. 4. Type 2 diabetes mellitus. Continue Lantus. Hold oral hypoglycemics while in the hospital. Invoke hospital hyperglycemia protocol. 5. CKD stage III borderline stage IV. Avoid nephrotoxins. Can safely continue losartan at this time as well as diuretics. Intermittent check of labs. Renally dose medications if necessary. 6. History of atrial arrhythmia. On Coumadin. Continue home regimen. Intermittent PT/INR checks. INR subtherapeutic at time of admission. Pharmacy to dose warfarin All other medical comorbidities are stable and nonactive conditions, will continue home medications at regular dose with the exception of unnecessary pasquale mins while admitted. CODE STATUS: DNR/DNI. DVT prophylaxis with Coumadin. PCP: Elena cohen NP
[2021-05-19] MEDS: Aspirin 81 MG Tab.EC PO SCH (08:33)
[2021-05-19] MEDS: Rosuvastatin 10 MG Tab PO SCH (08:35)
[2021-05-19] MEDS: amLODIPine 5 MG Tab PO SCH (08:36)
[2021-05-19] MEDS: Metoprolol Tartrate 25 MG Tab PO SCH ×2 (08:37→20:47)
[2021-05-19] MEDS: Losartan 50 MG Tab PO SCH (08:38)
[2021-05-19] MEDS: Insulin Glargine,Hum.Rec.Anlog 100 UNIT/ML 3 ML Pen SUBCUT SCH ×2 (08:41→21:22)
[2021-05-19] MEDS ORDERED: Furosemide 80 MG Tab PO SCH (09:00)
[2021-05-19] MEDS: [UNRECOGNIZED DRUG - OTHER] PO SCH (09:17)
[2021-05-19] MEDS: CALCIUM CITRATE PO SCH (09:17)
[2021-05-19] MEDS: Acetaminophen 325 MG Tab PO PRN ×2 (14:07→20:48)
[2021-05-19] MEDS ORDERED: Warfarin 5 MG Tab PO SCH (18:00)
[2021-05-19] MEDS ORDERED: Warfarin 2.5 MG Tab PO SCH (18:00)
[2021-05-19] MEDS: Sertraline 50 MG Tab PO SCH (20:47)
[2021-05-20] MEDS: Acetaminophen 325 MG Tab PO PRN (04:24)
[2021-05-20] MEDS: ceFAZolin 2 GM in Premix Bag 1 BAG IV SCH (04:24)
[2021-05-20] MEDS: Insulin Lispro 100 Unit/ML 3 ML KwikPen SUBCUT SCH ×2 (06:53→11:43)
[2021-05-20] MEDS ORDERED: Potassium Chloride 20 MEQ Tab.ER PO ONE (08:00)
[2021-05-20] MEDS: amLODIPine 5 MG Tab PO SCH (08:49)
[2021-05-20] MEDS: Aspirin 81 MG Tab.EC PO SCH (08:49)
[2021-05-20] MEDS: Losartan 50 MG Tab PO SCH (08:53)
[2021-05-20] MEDS: Rosuvastatin 10 MG Tab PO SCH (08:55)
[2021-05-20] MEDS: Furosemide 40 MG Tab PO SCH (08:55)
[2021-05-20] MEDS: Metoprolol Tartrate 25 MG Tab PO SCH ×2 (08:56→10:13)
[2021-05-20] MEDS: Insulin Glargine,Hum.Rec.Anlog 100 UNIT/ML 3 ML Pen SUBCUT SCH (08:56)
[2021-05-20] MEDS: CALCIUM CITRATE PO SCH (08:57)
[2021-05-20] MEDS: [UNRECOGNIZED DRUG - OTHER] PO SCH (08:57)
[2021-05-20 08:58] VITALS: BP 133/52
[2021-05-20 10:14] VITALS: PULSE 56
--- NOTE | 2021-05-20 10:37 | PCM.DCSUM1 ---
Discharge Summary - Hospital Course HPI Initial Comments: 70-year-old female with a past medical history as listed below who presents to the emergency department with a chief complaint of a painful right lower leg. The patient states that she was in her usual state of health up until Monday night when she started noticing increased swelling of the right lower extremity below the knee with erythematous changes. Erythematous changes have been mild and mostly located to the anterior the leg/pretibial. She does not recall any wounds or scratches. No recent trauma of any kind. No recent bug bites or altercations with animals. Her lower extremity began to show signs of increased erythema and edema later on in the day on Monday as well, later in the evening before bed. She woke up on Monday and the right leg was painful. It has been painful to walk on the leg since. She also developed some chills Monday and Monday with associated night sweats. She believes that she was febrile however did not take her temperature objectively. Her p.o. intake has been sluggish since then. She has denied any lightheadedness/dizziness, chest pain, chest pressure or pleurisy. No abdominal pain. She has had some nausea but only some dry heaves. She has not vomited. No bowel habit changes. No dysuria. No other skin changes noted except for the aforementioned. Upon presentation to the right lower extremity below the knee has mild calor and mild erythematous changes. There are no wounds or blisters. There seems to be some areas of bruising which is mild and pretibial. The patient was loaded with ceftriaxone and vancomycin. Patient was referred to the internal medicine service for further management. 14 point review of systems was reviewed with the patient entirely and only pertinent for the above information. CODE STATUS: DNR/DNI. Diagnosis: Stroke: No - Discharge Data Discharge Date: 05/20/21 (Admit date: 05/17/2021) Discharge Disposition: Home, Self-Care 01 Condition: Good - Referral to Home Health Primary Care Physician: Elena Casey NP - Discharge Diagnosis/Problem(s) (1) SIRS (systemic inflammatory response syndrome) SNOMED Code(s): 714899404 ICD Code: R65.10 - SIRS OF NON-INFECTIOUS ORIGIN W/O ACUTE ORGAN DYSFUNCTION Status: Resolved Priority: High Current Visit: Yes (2) Systolic CHF SNOMED Code(s): 12369339, 198132637 ICD Code: I50.20 - UNSPECIFIED SYSTOLIC (CONGESTIVE) HEART FAILURE Status: Chronic Priority: Medium Current Visit: Yes Qualifiers: Heart failure chronicity: chronic Qualified Code(s): I50.22 - Chronic systolic (congestive) heart failure (3) Type II diabetes mellitus SNOMED Code(s): 64167657 ICD Code: E11.9 - TYPE 2 DIABETES MELLITUS WITHOUT COMPLICATIONS Status: Chronic Priority: High Current Visit: Yes Qualifiers: Diabetes mellitus exterminator helper insulin use: with exterminator helper use Diabetes mellitus complication status: with other specified complication Qualified Code(s): E11.69 - Type 2 diabetes mellitus with other specified complication; Z79.4 - residential (current) use of insulin (4) CKD (chronic kidney disease) stage 3, GFR 30-59 ml/min SNOMED Code(s): 666774628 ICD Code: N18.30 - CHRONIC KIDNEY DISEASE, STAGE 3 UNSPECIFIED Status: Chronic Priority: Medium Current Visit: Yes Qualifiers: Chronic kidney disease stage 3 subtype: stage 3b (GFR 30-44) Qualified Code(s): N18.32 - Chronic kidney disease, stage 3b (5) History of atrial fibrillation SNOMED Code(s): 791903967 ICD Code: Z86.79 - PERSONAL HISTORY OF OTHER DISEASES OF THE CIRCULATORY SYSTEM Status: Chronic Priority: Low Current Visit: No (6) Chronic anticoagulation SNOMED Code(s): 797451107 ICD Code: Z79.01 - HALF-WAY (CURRENT) USE OF ANTICOAGULANTS Status: Fur Plucker sky Priority: Medium Current Visit: Yes (7) Subtherapeutic international normalized ratio (INR) SNOMED Code(s): 239372793, 957680521 ICD Code: R79.1 - ABNORMAL COAGULATION PROFILE Status: Acute Priority: High Current Visit: Yes (8) Anemia SNOMED Code(s): 570959746 ICD Code: D64.9 - ANEMIA, UNSPECIFIED Status: Acute Priority: Medium Current Visit: Yes Qualifiers: Anemia type: unspecified type Qualified Code(s): D64.9 - Anemia, unspecified (9) Thrombocytopenia SNOMED Code(s): 595559514 ICD Code: D69.6 - THROMBOCYTOPENIA, UNSPECIFIED Status: Acute Priority: Medium Current Visit: Yes (10) Cellulitis of lower extremity SNOMED Code(s): 435789430 ICD Code: L03.119 - CELLULITIS OF UNSPECIFIED PART OF LIMB Status: Acute Priority: High Current Visit: Yes Qualifiers: Laterality: right Qualified Code(s): L03.115 - Cellulitis of right lower limb - Patient Summary/Data Consults: Consultations 05/17/21 17:43 OT Evaluation and Treatment [CONS] Routine PT Evaluation and Treatment [CONS] Routine Labs Pending at D/C: None Recommended Follow-up Testing/Procedures: Follow-up with primary care provider within 5 to 7 days of discharge, sooner if needed. * All home medications continued at discharge * Started on 500 mg twice daily Keflex for 13 more doses. First dose tonight, 05/20/2021. * Work excuse sent. Patient works Monday through Monday. She may return to work on 05/30/2021. Hospital Course: 70-year-old female who presented to ED on 05/17/2021 with right lower extremity redness, warmth, and swelling. She was reporting fevers and diarrhea along with a cough. She was initially started on Rocephin and vancomycin and ultimately switched to Ancef. INR was noted to be subtherapeutic on admission and pharmacy was dosing her warfarin. Lower extremity ultrasound was obtained to rule out DVT and this was negative. Blood cultures have been negative. On admission she was hyponatremic with a sodium of 135 and hypokalemic with a potassium of 3.1. Potassium was supplemented. PCP should monitor this and implement supplementation if needed. Renal function remained stable with a creatinine of 1.3 and a GFR in the low 40s. She will be discharged on 500 mg every 12 hour Keflex with her first dose tonight, 05/20/2021. She was instructed to continue this until complete. Discussed warfarin dosing with pharmacy as they were dosing the patient while here and they recommend continuing at home dose. Physical therapy and Occupational Therapy evaluated the patient and recommended home independent with no further services. Patient did note that she works Monday and Monday and a work release note was provided. She may return to work on 05/30/2021. She was instructed to contact her primary care provider return the emergency room if symptoms return or worsen. Discharged home today. - Patient Instructions Diet: Diabetic Diet Activity: As Tolerated, Rest and Relax Today Driving: Do Not Drive (until feeling better ) Showering/Bathing: May Shower Notify Provider of: Fever, Increased Pain, Swelling and Redness, Drainage, Nausea and/or Vomiting Other/Special Instructions: Follow-up with primary care provider within 5 to 7 days of discharge, sooner if needed. You are prescribed an antibiotic called Keflex or cephalexin for your leg infection. You should take your first dose tonight and take it every 12 hours until complete. Continue to take this even if you are feeling 100% better until gone. Resume home medications as directed. As we discussed, you should remain home from your upcoming shift on 05/23/2021 through 05/26/2021. You may return to work on your normal shift of 05/30/2021. You were evaluated by physical therapy and they are recommending home independent. They do not see a need for continued outpatient physical therapy at this time. Should you feel otherwise you may always contact your local physical therapist directly and get an appointment with them. Should symptoms return or worsen contact your primary care provider or return the emergency room. - Discharge Plan *PRESCRIPTION DRUG MONITORING PROGRAM REVIEWED*: No *COPY OF PRESCRIPTION DRUG MONITORING REPORT IN PATIENT GUILHERME: No Prescriptions/Med Rec: cephALEXin [Keflex] 500 mg PO Q12H #13 cap Home Medications: Home Meds Aspirin [Panther Burn Aspirin] 81 mg PO DAILY 10/09/14 [History] Insulin Aspart [NovoLOG] 2 - 12 unit SQ TID 10/09/14 [History] Insulin Glargine,Hum.Rec.Anlog [Lantus Solostar] 15 unit SQ DAILY 10/09/14 [History] Mometasone Furoate [Elocon 0.1% Crm] 0.1 gm TOP DAILY PRN 10/09/14 [History] Sertraline [Zoloft] 100 mg PO BEDTIME 10/09/14 [History] Rosuvastatin Calcium 10 mg PO DAILY 10/18/18 [History] amLODIPine Besylate [Amlodipine Besylate] 5 mg PO DAILY 10/18/18 [History] Acetaminophen [Tylenol Extra Strength] 500 mg PO Q4HR PRN 11/22/18 [History] Furosemide 80 mg PO MOWEFR 11/22/18 [History] Metoprolol Tartrate 25 mg PO BID 11/22/18 [History] Valsartan 80 mg PO DAILY 11/22/18 [History] Clobetasol/Emollient [Temovate E 0.05% Crm] 1 appful TOP BID 02/13/21 [History] Furosemide [Lasix] 40 mg PO SUTUTHSA 02/13/21 [History] Warfarin [Coumadin] 2.5 mg PO TUTHSA 02/13/21 [History] Warfarin [Coumadin] 5 mg PO SUMOWEFR 02/13/21 [History] Insulin Glarg,Human.Rec.Analog [Lantus Solostar] 10 unit SUBCUT BEDTIME 05/17/21 [History] Non-Formulary Medication [NF Drug] 1 tab PO DAILY 05/18/21 [History] cephALEXin [Keflex] 500 mg PO Q12H #13 cap 05/20/21 [Rx] Oxygen Therapy Mode: Room Air Patient Handouts: Cellulitis, Adult, Diabetes Mellitus and Sick Day Management, Sepsis, Diagnosis, Adult, Living With Heart Failure, Heart Failure Eating Plan Forms: ED Department Discharge Referrals: Elena Casey REGISTERED PHYSICAL THERAPIST [Primary Care Provider] - 05/26/21 9:00 am (Please check in at 8:45AM) - Discharge Summary/Plan Comment DC Time >30 min.: Yes Total # of Minutes for Discharge Time: 40 - General Info Date of Service: 05/20/21 Admission Dx/Problem (Free Text: Admission Diagnosis/Problem Admission Diagnosis/Problem Cellulitis Functional Status: Reports: Pain Controlled, Tolerating Diet, Ambulating, Urinating. Denies: New Symptoms - Review of Systems General: Reports: Weakness (Mild - improving ). Denies: Fever, Fatigue, Malaise, Chills HEENT: Reports: No Symptoms. Denies: Headaches Pulmonary: Reports: No Symptoms. Denies: Shortness of Breath, Cough, Sputum, Wheezing Cardiovascular: Reports: Edema (Mild right LE - improved ). Denies: Chest Pain, Palpitations, Dyspnea on Exertion Gastrointestinal: Reports: No Symptoms. Denies: Abdominal Pain, Constipation, Diarrhea, Nausea, Vomiting Genitourinary: Reports: No Symptoms. Denies: Pain 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: Reports: Leg Pain (Mild right leg pain with ambulation ) Skin: Reports: No Symptoms. Denies: Cyanosis Neurological: Reports: No Symptoms. Denies: Confusion, Dizziness, Headache, Numbness, Pre-Existing Deficit, Tingling, Difficulty Walking (utilizing a walker), Gait Disturbance Psychiatric: Reports: No Symptoms - Patient Data Vitals - Most Recent: Last Vital Signs Temp 98.4 F 05/19/21 20:20 Pulse 56 L 05/20/21 10:13 Resp 20 05/19/21 20:20 BP 133/52 L 05/20/21 10:13 Pulse Ox 97 05/19/21 20:20 Weight - Most Recent: 142 lb 1.6 oz I&O - Last 24 hours: Intake & Output 05/19/21 05/20/21 05/20/21 22:59 06:59 14:59 Intake Total 1230 332 Output Total 1150 1175 Balance 80 -843 Lab Results - Last 24 hrs: Laboratory Results - last 24 hr 05/19/21 05/19/21 05/19/21 Range/Units 11:44 17:06 21:15 WBC (3.98-10.04) K/mm3 RBC (3.98-5.22) M/mm3 Hgb (11.2-15.7) gm/dl Hct (34.1-44.9) % MCV (79.4-94.8) fl MCH (25.6-32.2) pg MCHC (32.2-35.5) g/dl RDW Std Deviation (36.4-46.3) fL Plt Count (182-369) K/mm3 MPV (9.4-12.3) fl Neut % (Auto) (34.0-71.1) % Lymph % (Auto) (19.3-51.7) % Rooks % (Auto) (4.7-12.5) % Eos % (Auto) (0.7-5.8) Baso % (Auto) (0.1-1.2) % Neut # (Auto) (1.56-6.13) K/mm3 Lymph # (Auto) (1.18-3.74) K/mm3 Rooks # (Auto) (0.24-0.36) K/mm3 Eos # (Auto) (0.04-0.36) K/mm3 Baso # (Auto) (0.01-0.08) K/mm3 PT (9.7-12.0) SECONDS INR Sodium (136-145) mEq/L Potassium (3.5-5.1) mEq/L Chloride (98-107) mEq/L Carbon Dioxide (21-32) mEq/L Anion Gap (5-15) BUN (7-18) mg/dL Creatinine (0.55-1.02) mg/dL Est Cr Clr Drug Dosing mL/min Estimated GFR (MDRD) (>60) mL/min BUN/Creatinine Ratio (14-18) Glucose (70-99) mg/dL POC Glucose 171 H 259 H 256 H (70-99) mg/dL Calcium (8.5-10.1) mg/dL C-Reactive Protein (<1.0) mg/dL 05/20/21 05/20/21 05/20/21 Range/Units 05:39 05:39 05:39 WBC 8.25 (3.98-10.04) K/mm3 RBC 3.31 L (3.98-5.22) M/mm3 Hgb 8.7 L (11.2-15.7) gm/dl Hct 28.7 L (34.1-44.9) % MCV 86.7 (79.4-94.8) fl MCH 26.3 (25.6-32.2) pg MCHC 30.3 L (32.2-35.5) g/dl RDW Std Deviation 43.7 (36.4-46.3) fL Plt Count 186 (182-369) K/mm3 MPV 10.5 (9.4-12.3) fl Neut % (Auto) 73.4 H (34.0-71.1) % Lymph % (Auto) 13.2 L (19.3-51.7) % Rooks % (Auto) 11.0 (4.7-12.5) % Eos % (Auto) 1.7 (0.7-5.8) Baso % (Auto) 0.2 (0.1-1.2) % Neut # (Auto) 6.05 (1.56-6.13) K/mm3 Lymph # (Auto) 1.09 L (1.18-3.74) K/mm3 Rooks # (Auto) 0.91 H (0.24-0.36) K/mm3 Eos # (Auto) 0.14 (0.04-0.36) K/mm3 Baso # (Auto) 0.02 (0.01-0.08) K/mm3 PT 22.4 H (9.7-12.0) SECONDS INR 2.08 Sodium 137 (136-145) mEq/L Potassium 3.3 L (3.5-5.1) mEq/L Chloride 101 (98-107) mEq/L Carbon Dioxide 25 (21-32) mEq/L Anion Gap 14.3 (5-15) BUN 19 H (7-18) mg/dL Creatinine 1.3 H (0.55-1.02) mg/dL Est Cr Clr Drug Dosing 29.75 mL/min Estimated GFR (MDRD) 41 (>60) mL/min BUN/Creatinine Ratio 14.6 (14-18) Glucose 137 H (70-99) mg/dL POC Glucose (70-99) mg/dL Calcium 8.0 L (8.5-10.1) mg/dL C-Reactive Protein 8.5 H* (<1.0) mg/dL 05/20/21 Range/Units 06:48 WBC (3.98-10.04) K/mm3 RBC (3.98-5.22) M/mm3 Hgb (11.2-15.7) gm/dl Hct (34.1-44.9) % MCV (79.4-94.8) fl MCH (25.6-32.2) pg MCHC (32.2-35.5) g/dl RDW Std Deviation (36.4-46.3) fL Plt Count (182-369) K/mm3 MPV (9.4-12.3) fl Neut % (Auto) (34.0-71.1) % Lymph % (Auto) (19.3-51.7) % [place]ooks % (Auto) (4.7-12.5) % Eos % (Auto) (0.7-5.8) Baso % (Auto) (0.1-1.2) % Neut # (Auto) (1.56-6.13) K/mm3 Lymph # (Auto) (1.18-3.74) K/mm3 [place]ooks # (Auto) (0.24-0.36) K/mm3 Eos # (Auto) (0.04-0.36) K/mm3 Baso # (Auto) (0.01-0.08) K/mm3 PT (9.7-12.0) SECONDS INR Sodium (136-145) mEq/L Potassium (3.5-5.1) mEq/L Chloride (98-107) mEq/L Carbon Dioxide (21-32) mEq/L Anion Gap (5-15) BUN (7-18) mg/dL Creatinine (0.55-1.02) mg/dL Est Cr Clr Drug Dosing mL/min Estimated GFR (MDRD) (>60) mL/min BUN/Creatinine Ratio (14-18) Glucose (70-99) mg/dL POC Glucose 144 H (70-99) mg/dL Calcium (8.5-10.1) mg/dL C-Reactive Protein (<1.0) mg/dL JAE Results - Last 24 hrs: Microbiology 05/17/21 16:33 Blood Culture - Preliminary Blood - Venous Med Orders - Current: Current Medications Acetaminophen (Acetaminophen 325 Mg Tab) 650 mg PO Q4H PRN PRN Reason: Pain (Mild 1-3)/fever Last Admin: 05/20/21 04:24 Dose: 650 mg Documented by: Amlodipine Besylate (Amlodipine 5 Mg Tab) 5 mg PO DAILY [facility] Last Admin: 05/20/21 08:49 Dose: 5 mg Documented by: Aspirin (Aspirin 81 Mg Tab.Ec) 81 mg PO DAILY [facility] Last Admin: 05/20/21 08:49 Dose: 81 mg Documented by: Docusate Sodium (Docusate Sodium 100 Mg Cap) 100 mg PO BID PRN PRN Reason: Constipation Furosemide (Furosemide 80 Mg Tab) 80 mg PO MoWeFr@0900 [facility] Last Admin: 05/19/21 08:36 Dose: 80 mg Documented by: Furosemide (Furosemide 40 Mg Tab) 40 mg PO SuTuThSa@0900 [facility] Last Admin: 05/20/21 08:55 Dose: 40 mg Documented by: Cefazolin Sodium/Dextrose 2 gm (/ Premix) 50 mls @ 100 mls/hr IV Q12H [facility] Last Admin: 05/20/21 04:24 Dose: 100 mls/hr Documented by: Insulin Glargine (Insulin Glargine,Hum.Rec.Anlog 100 Unit/Ml 3 Ml Pen) 10 unit SUBCUT BEDTIME [facility] Last Admin: 05/19/21 21:22 Dose: 10 units Documented by: Insulin Glargine (Insulin Glargine,Hum.Rec.Anlog 100 Unit/Ml 3 Ml Pen) 15 unit SUBCUT DAILY [facility] Last Admin: 05/20/21 08:56 Dose: 15 units Documented by: Insulin Human Lispro (Insulin Lispro 100 Unit/Ml 3 Ml Kwikpen) 0 unit SUBCUT WITHMEALSANDBED [facility]; Protocol Last Admin: 05/20/21 06:53 Dose: Not Given Documented by: Losartan Potassium (Losartan 50 Mg Tab) 50 mg PO DAILY [facility] Last Admin: 05/20/21 08:53 Dose: 50 mg Documented by: Metoprolol Tartrate (Metoprolol Tartrate 25 Mg Tab) 25 mg PO BID [facility] Last Admin: 05/20/21 10:13 Dose: 25 mg Documented by: Calcium Citrate 630mg Vitamin D3 500 Iu Tabs Ptom 1 each PO DAILY [facility] Last Admin: 05/20/21 08:57 Dose: 1 each Documented by: Ondansetron HCl (Ondansetron 4 Mg/2 Ml Sdv) 4 mg IV Q4H PRN PRN Reason: Nausea/Vomiting Rosuvastatin Calcium (Rosuvastatin 10 Mg Tab) 20 mg PO DAILY [facility] Last Admin: 05/20/21 08:55 Dose: 20 mg Documented by: Sertraline HCl (Sertraline 50 Mg Tab) 50 mg PO BEDTIME [facility] Last Admin: 05/19/21 20:47 Dose: 50 mg Documented by: Sodium Chloride (Sodium Chloride 0.9% 10 Ml Syringe) 10 ml FLUSH ASDIRECTED PRN PRN Reason: Keep Vein Open Warfarin Sodium (Pharmacy To Dose - Warfarin) 0 dose PO ASDIRECTED PRN PRN Reason: RX TO DOSE WARFARIN Discontinued Medications Aspirin (Aspirin 81 Mg Tab.Chew) 81 mg PO DAILY [facility] Furosemide (Furosemide 40 Mg Tab) 80 mg PO MOWEFR [facility] Last Admin: 05/17/21 19:50 Dose: Not Given Documented by: Furosemide (Furosemide 40 Mg Tab) 40 mg PO SUTUTHSA [facility] Ceftriaxone Sodium 2 gm/ (Sodium Chloride) 100 mls @ 200 mls/hr IV ONETIME ONE Stop: 05/17/21 16:22 Last Admin: 05/17/21 16:59 Dose: 200 mls/hr Documented by: Sodium Chloride (Normal Saline) 1,000 mls @ 75 mls/hr IV NOW STA Stop: 05/18/21 05:13 Last Admin: 05/17/21 16:58 Dose: 75 mls/hr Documented by: Vancomycin HCl 1 gm/Vancomycin HCl 250 mg/ Sodium Chloride 250 mls @ 166 mls/hr IV ONETIME ONE Stop: 05/17/21 18:00 Last Admin: 05/17/21 17:33 Dose: 166 mls/hr Documented by: Cefazolin Sodium 2 gm/ Sodium (Chloride) 50 mls @ 100 mls/hr IV Q8H [facility] Last Admin: 05/17/21 19:50 Dose: Not Given Documented by: Potassium Chloride 10 meq/ (Premix) 100 mls @ 100 mls/hr IV Q1H [facility] Stop: 05/17/21 21:59 Last Admin: 05/18/21 00:37 Dose: 100 mls/hr Documented by: Potassium Chloride 10 meq/ (Premix) 100 mls @ 100 mls/hr IV Q1H [facility] Stop: 05/18/21 11:14 Last Admin: 05/18/21 18:58 Dose: Not Given Documented by: Sodium Chloride (Normal Saline) 250 mls @ 50 mls/hr IV ASDIRECTED [facility] Last Admin: 05/18/21 10:37 Dose: 50 mls/hr Documented by: Metoprolol Tartrate (Metoprolol Tartrate 50 Mg Tab) 25 mg PO BID [facility] Last Admin: 05/17/21 20:05 Dose: 25 mg Documented by: Morphine Sulfate (Morphine 2 Mg/Ml Syringe) 2 mg IVPUSH Q2H PRN PRN Reason: Pain (severe 7-10) Stop: 05/18/21 17:44 Non-Formulary Medication (Rosuvastatin) 20 mg PO DAILY [facility] Non-Formulary Medication (Sertraline) 50 mg PO BEDTIME [facility] Last Admin: 05/17/21 22:56 Dose: Not Given Documented by: Non-Formulary Medication (Valsartan [Valsartan]) 80 mg PO DAILY [facility] Valsartan 160 Tab (Ptom) 80 mg PO DAILY [facility] Potassium Chloride (Potassium Chloride 20 Meq Tab.Er) 40 meq PO ONETIME ONE Stop: 05/18/21 11:25 Last Admin: 05/18/21 11:39 Dose: 40 meq Documented by: Potassium Chloride (Potassium Chloride 20 Meq Tab.Er) 40 meq PO ONETIME ONE Stop: 05/20/21 08:01 Last Admin: 05/20/21 08:54 Dose: 40 meq Documented by: Sodium Chloride (Sodium Chloride 0.9% 10 Ml Syringe) 10 ml FLUSH ASDIRECTED PRN PRN Reason: Keep Vein Open Last Admin: 05/17/21 17:00 Dose: 10 ml Documented by: Vancomycin HCl (Pharmacy To Dose - Vancomycin) 1 dose .XX ONETIME ONE Stop: 05/17/21 16:02 Last Admin: 05/17/21 17:00 Dose: Not Given Documented by: Warfarin Sodium (Warfarin 5 Mg Tab) 2.5 mg PO TUTA [facility] Warfarin Sodium (Warfarin 5 Mg Tab) 5 [facility] Last Admin: 05/17/21 19:50 Dose: Not Given Documented by: Warfarin Sodium (Warfarin 5 Mg Tab) 5 mg PO ONETIME ONE Stop: 05/17/21 22:31 Last Admin: 05/17/21 22:40 Dose: 5 mg Documented by: Warfarin Sodium (Warfarin 5 Mg Tab) 5 mg PO QPM [facility] Stop: 05/18/21 18:01 Last Admin: 05/18/21 17:09 Dose: 5 mg Documented by: Warfarin Sodium (Warfarin 2.5 Mg Tab) 2.5 mg PO QPM [facility] Stop: 05/19/21 18:01 Last Admin: 05/19/21 17:35 Dose: 2.5 mg Documented by: - Exam Quality Assessment: Reports: DVT Prophylaxis. Denies: Supplemental Oxygen, Urine Catheter General: Reports: Alert, Oriented, Cooperative, No Acute Distress HEENT: Reports: Pupils Equal, Pupils Reactive, Mucous Membr. Moist/[place] Neck: Reports: Supple, Trachea Midline Lungs: Reports: Clear to Auscultation, Normal Respiratory Effort Cardiovascular: Reports: Regular Rate, Regular Rhythm GI/Abdominal Exam: Normal Bowel Sounds, Soft, Non-Tender, No Distention (Female) Exam: Deferred Rectal (Female) Exam: Deferred Back Exam: Reports: Normal Inspection, Full Range of Motion Extremities: Normal Range of Motion, Normal Capillary Refill, Pedal Edema (Trace - 1+ right ), Leg Pain (right with ambulation - improved ). No: Limited Range of Motion Skin: Reports: Warm, Dry, Intact Wound/Incisions: Reports: Healing Well, No Drainage, Erythema Improving Neurological: Reports: No New Focal Deficit Psy/Mental Status: Reports: Alert, Normal Affect, Normal Mood
[2021-05-20] MEDS ORDERED: Warfarin 2.5 MG Tab PO SCH (18:00)
== END 2021-05-20 12:25 | disposition home or self-care (01) | DRG 603 ==
LOC: JD.ED 15:24 → JD.MS 17:49
PROVIDERS: ADMIT Hospitalist; ATTEND Hospitalist
DX: L03.115 Cellulitis of right lower limb (principal); H54.7 Unspecified visual loss; R65.10 Systemic inflammatory response syndrome (SIRS) of non-infectious origin without acute organ dysfunction; I50.22 Chronic systolic (congestive) heart failure; I50.9 Heart failure, unspecified; E78.00 Pure hypercholesterolemia, unspecified; I11.0 Hypertensive heart disease with heart failure; E87.1 Hypo-osmolality and hyponatremia; Z95.1 Presence of aortocoronary bypass graft; I42.9 Cardiomyopathy, unspecified; I73.9 Peripheral vascular disease, unspecified; I08.0 Rheumatic disorders of both mitral and aortic valves; M50.30 Other cervical disc degeneration, unspecified cervical region; I13.0 Hypertensive heart and chronic kidney disease with heart failure and stage 1 through stage 4 chronic kidney disease, or unspecified chronic kidney disease; I48.91 Unspecified atrial fibrillation; E11.9 Type 2 diabetes mellitus without complications; E66.9 Obesity, unspecified; Z88.1 Allergy status to other antibiotic agents; Z88.8 Allergy status to other drugs, medicaments and biological substances; Z66 Do not resuscitate; Z79.82 Long term (current) use of aspirin; R79.1 Abnormal coagulation profile; Z79.899 Other long term (current) drug therapy; D63.1 Anemia in chronic kidney disease; D69.6 Thrombocytopenia, unspecified; E87.6 Hypokalemia; F41.9 Anxiety disorder, unspecified; F32.A Depression, unspecified; I25.2 Old myocardial infarction; E78.5 Hyperlipidemia, unspecified; I25.10 Atherosclerotic heart disease of native coronary artery without angina pectoris; N18.32 Chronic kidney disease, stage 3b; E11.22 Type 2 diabetes mellitus with diabetic chronic kidney disease; Z95.5 Presence of coronary angioplasty implant and graft; Z97.3 Presence of spectacles and contact lenses; Z79.4 Long term (current) use of insulin; Z79.01 Long term (current) use of anticoagulants; Z98.890 Other specified postprocedural states; Z90.89 Acquired absence of other organs; Z98.42 Cataract extraction status, left eye; Z98.41 Cataract extraction status, right eye; Z90.49 Acquired absence of other specified parts of digestive tract; Z20.822 Contact with and (suspected) exposure to COVID-19
CPT/HCPCS: 36415; 71046; 80053; 81001; 85025; 85610; 86140; 87040 ×2; 96365; 96375; 99285; J0696; J3370 ×2; J7030; J7050; U0002; 80048; 82947; 93970; 93970-26; 97110-GP; 97116-GP; 97161-GP; 99222; 99232; 99239; 99284; A9270-GY; J0690; J3480

== ENCOUNTER 2023-12-14 07:51 | Day surgery (SDC) | payer MEDICARE ==
[~2023-12-14 07:51] MED LIST changes: -Lactated Ringers 1,000 ML IV SCH; -Lidocaine 1%/Sod Bicarbonate in NS 8.4% 1 ML Syringe IDERM PRN; +Sodium Chloride 0.9% 10 ML Syringe FLUSH SCH
[2023-12-14] MEDS: Lactated Ringers 1,000 ML IV SCH (08:52)
[2023-12-14] MEDS ORDERED: Propofol 200 MG/20 ML SDV ONE (09:24)
[2023-12-14] MEDS ORDERED: Lidocaine 2% 5 ML SDV ONE (09:29)
[2023-12-14] MEDS ORDERED: Ondansetron 4 MG/2 ML SDV IVPUSH PRN (09:55)
[2023-12-14] MEDS ORDERED: fentaNYL 100 MCG/2 ML SDV IVPUSH PRN (09:55)
[2023-12-14 10:51] VITALS: BP 183/77; PULSE 61
== END 2023-12-14 11:00 | disposition home or self-care (01) ==
LOC: JD.SDS 07:51
PROVIDERS: ATTEND Surgery
DX: Z12.11 Encounter for screening for malignant neoplasm of colon (principal); F41.9 Anxiety disorder, unspecified; I25.10 Atherosclerotic heart disease of native coronary artery without angina pectoris; I13.0 Hypertensive heart and chronic kidney disease with heart failure and stage 1 through stage 4 chronic kidney disease, or unspecified chronic kidney disease; I50.9 Heart failure, unspecified; E11.22 Type 2 diabetes mellitus with diabetic chronic kidney disease; N18.30 Chronic kidney disease, stage 3 unspecified; E78.00 Pure hypercholesterolemia, unspecified; D50.9 Iron deficiency anemia, unspecified; Z86.010 Personal history of colon polyps; Z88.8 Allergy status to other drugs, medicaments and biological substances; Z79.82 Long term (current) use of aspirin; Z79.899 Other long term (current) drug therapy; Z79.4 Long term (current) use of insulin; Z79.01 Long term (current) use of anticoagulants
CPT/HCPCS: G0105; J2704; J7120; J3490